=== PATIENT | female | born 1955 | race Caucasian/White ===

== ENCOUNTER 2017-05-19 23:12 | Emergency (ER) | payer OTHER ==
[~2017-05-19] VITALS: Ht 167.6 cm; Wt 104.5 kg
[~2017-05-19 23:12] MED LIST: ALBU8.5H5; ASPI-535 PO; ATOR80TA75 PO; BCL80INH INH; CARV3.1260 PO; CEPH-443 PO; CHLO1CAP56; CIPR500T4 PO; DOCU-144 PO; HYDR-906 PO; INSU100V18; ISOS5TAB2 PO; KENC1 TOP; KETO15CR TOP; LACTINEX PO; LAM1CR24 TOP; LANT3I SC; LAS20 PO; MELO-109 PO; NIT4 SL; ONDA4TAB35 PO; PANT40TA3 PO; SENN-36 PO; TICA90TA PO; TRAM50TA2 PO
[2017-05-19 23:16] VITALS: Ht 167.6 cm; Wt 104.5 kg
[2017-05-20] MEDS ORDERED: SOD CHLORIDE 0.9% 500 ML IV STA (01:06)
[2017-05-20 01:45] VITALS: TEMP 98.2
[2017-05-20] MEDS: ONDANSETRON 4 MG INJ IV STA ×2 (01:50→01:58)
[2017-05-20] MEDS: morphine 4 MG/ML VIAL IV STA ×2 (01:50→01:58)
[2017-05-20 01:59] LABS: URINE BLOOD (Dip) POC Negative (NEGATIVE)
[2017-05-20 02:42] LABS: ADD SCAN DIFF NO
[2017-05-20 02:46] LABS: BASOPHILS % 0.3 % (0.0-2.0); EOSINOPHILS # 0.4 10^3/ul (0.0-0.5); EOSINOPHILS % 4.5 % (0.0-7.0); HEMOGLOBIN 15.5 g/dl (12.0-16.0); LYMPHOCYTES # 2.4 10^3/ul (0.8-2.9); MEAN CORPUSCULAR HEMOGLOBIN 29.3 pg (29.0-33.0); MEAN CORPUSCULAR HGB CONC 34.4 g/dl (32.0-37.0); MEAN CORPUSCULAR VOLUME 85.1 fl (82.0-101.0); MEAN PLATELET VOLUME 10.3 fl (7.4-10.4); MONOCYTE # 0.6 10^3/ul (0.3-0.9); MONOCYTES % 6.8 % (0.0-11.0); NEUTROPHIL # 5.7 10^3/ul (1.6-7.5); PLATELET COUNT 400 10^3/UL (140-415); RED BLOOD COUNT 5.29 10^6/ul (4.20-5.40); RED CELL DISTRIBUTION WIDTH 13.2 % (11.5-14.5); WHITE BLOOD COUNT 9.1 10^3/ul (4.8-10.8)
--- NOTE | 2017-05-20 03:08 | RADRPT ---
PROCEDURE: CHEST - 1 VIEW CLINICAL INDICATION: 61-year-old female with chest/abdominal pain. TECHNIQUE: A single frontal view of the chest was performed. The images were reviewed on a PACS workstation. COMPARISON: None. FINDINGS: The cardiomediastinal silhouette has a normal appearance. There most aspect of the left lower latera l chest wall is not completely visualized. There is no evidence for an infiltrate. There is no evid ence for congestive heart failure. There is no evidence for pneumothorax. The osseous structures are intact. IMPRESSION: No evidence for active cardiopulmonary disease. .René Cornell MD, MD Date Time Electronically viewed and signed by .René Cornell MD, on 05/20/2017 03:08 .Koko
[2017-05-20 03:19] LABS: ALANINE AMINOTRANSFERASE 48 IU/L (13-69); ALBUMIN/GLOBULIN RATIO 1.56; ALKALINE PHOSPHATASE 132 IU/L (42-121); ANION GAP 13 (8-16); ASPARTATE AMINO TRANSFERASE 30 IU/L (15-46); BILIRUBIN,INDIRECT 0.3 mg/dl (0-1.1); BILIRUBIN,TOTAL 0.3 mg/dl (0.2-1.3); BLOOD UREA NITROGEN 18 mg/dl (7-20); CALCIUM 9.9 mg/dl (8.4-10.2); CARBON DIOXIDE 28 mmol/L (21-31); CHLORIDE 102 mmol/L (97-110); CREATININE 0.74 mg/dl (0.44-1.00); GLUCOSE 203 mg/dl (70-220); POTASSIUM 3.9 mmol/L (3.5-5.1); SODIUM 139 mmol/L (135-144); TOTAL PROTEIN 8.2 g/dl (6.1-8.1)
[2017-05-20 03:20] LABS: ADD UMIC YES; UR ASCORBIC ACID NEGATIVE (NEGATIVE); UR BACTERIA MODERATE /HPF (NONE SEEN); UR BILIRUBIN (Dip) NEGATIVE (NEGATIVE); UR BLOOD (Dip) NEGATIVE (NEGATIVE); UR CLARITY CLOUDY (CLEAR); UR COLOR AMBER (YELLOW); UR GLUCOSE (Dip) NEGATIVE (NEGATIVE); UR KETONES (Dip) NEGATIVE (NEGATIVE); UR LEUKOCYTE ESTERASE (Dip) 2+ Leu/ul (NEGATIVE); UR MUCUS FEW /HPF (NONE SEEN); UR NITRITE (Dip) POSITIVE (NEGATIVE); UR RBC 2 /HPF (0-5); UR SPECIFIC GRAVITY (Dip) 1.033 (1.003-1.030); UR SQUAMOUS EPITHELIAL CELL MODERATE /HPF (FEW); UR TOTAL PROTEIN (Dip) NEGATIVE (NEGATIVE); UR UROBILINOGEN (Dip) NEGATIVE (NEGATIVE)
[2017-05-20] MEDS ORDERED: MELO-110 PO (03:23)
[2017-05-20] MEDS ORDERED: CIPR500T4 PO (03:23)
[2017-05-20] MEDS ORDERED: CARV3.1260 PO (03:23)
[2017-05-20] MEDS ORDERED: CARV6.2579 PO (03:23)
--- NOTE | 2017-05-20 03:28 | ERD ---
ER Documentation Chief Complaint Date/Time DATE: 05/20/17 TIME: 03:27 Chief Complaint right flank pain x 1 day, hypertension- pt did not take bp med today HPI This 61-year-old female right flank pain for 1 day. Patient has history of multiple episodes of pyelonephritis. Denies any fevers or chills. Mild nausea but no vomiting. No other current complaints. ROS All systems reviewed and are negative except as per history of present illness. Medications Home Meds Active Scripts Ciprofloxacin Hcl* (Ciprofloxacin Hcl*) 500 Mg Tablet, 500 MG PO BID for 7 Days , TAB Prov:SAMMY HU. 05/20/17 Meloxicam* (Mobic*) 15 Mg Tablet, 15 MG PO DAILY, #30 TAB Prov:SAMMY HU. 05/20/17 Carvedilol* (Carvedilol*) 6.25 Mg Tablet, 6.25 MG PO BID, #60 TAB Prov:SAMMY HU. 05/20/17 Carvedilol* (Carvedilol*) 3.125 Mg Tablet, 3.125 MG PO BID, #60 TAB Prov:SAMMY HU S. 05/20/17 Ticagrelor* (Brilinta*) 90 Mg Tablet, 90 MG PO Q12 for 30 Days, TAB Prov:AR HUANG 06/18/15 Cephalexin* (Keflex*) 500 Mg Capsule, 500 MG PO QID for 14 Days, CAP Prov:AR HUANG 06/18/15 Furosemide (Lasix) 20 Mg Tab, 20 MG PO DAILY, #30 TAB Prov:STIVEN GAMBOA MD 08/12/14 Ciprofloxacin Hcl* (Ciprofloxacin Hcl*) 500 Mg Tablet, 500 MG PO BID, #30 TAB Prov:STIVEN GAMBOA MD 08/12/14 Reported Medications Triamcinolone Acetonide (Triamcinolone Acetonide) 0.1% - 15 Gm Cream.gm., TOP DAILY Y for DRY SKIN, TUB 08/10/14 Ketoconazole* (Ketoconazole*) 60 Gm Cream.gm., 1 APPLIC TOP BID Y for JOCK ITCH , EA 08/10/14 Terbinafine Hcl* (Lamisil*) 1% - 30 Gm Cr, 1 APPLIC TOP DAILY Y for ATHLETE FOOT , TUB 08/10/14 Meloxicam* (Meloxicam*) 7.5 Mg Tablet, 15 MG PO DAILY, TAB 08/10/14 Nitroglycerin* (Nitrostat*) 0.4 Mg Tab.subl, 0.4 MG SL Q5MIN Y for CHEST PAIN, BOTTLE 08/10/14 Pantoprazole* (Protonix*) 40 Mg Tablet.dr, 40 MG PO DAILY, TAB 08/10/14 Lactobacillus Acidophilus* (Lactinex*) 1 Tab Chew, 1 TAB PO DAILY, TAB 08/10/14 Sennosides* (Senokot*) 8.6 Mg Tablet, 1-2 TAB PO DAILY, TAB 08/10/14 Docusate Sodium* (Colace*) 100 Mg Capsule, 100 MG PO BID Y for CONSTIPATION, CAP 08/10/14 Ondansetron Hcl* (Zofran* ODT) 4 mg -ODT Tab.disper, 4 MG PO Q6H Y for NAUSEA, TAB 08/10/14 Beclomethasone Dip (Qvar 80) 1 Puff Inha, 1 PUFF INH DAILY, INH RINSE MOUTH AFTER EACH USE 08/10/14 Insulin Glargine* (Lantus*) 100 Unit/Ml Soln, 62 UNIT SC HS, EA 08/10/14 Atorvastatin* (Atorvastatin*) 80 Mg Tablet, 80 MG PO DAILY, TAB 08/10/14 Carvedilol* (Carvedilol*) 3.125 Mg Tablet, 3.125 MG PO BID, TAB 08/10/14 Aspirin Ec (Aspir 81) 81 Mg Tablet.dr, 81 MG PO DAILY 06/06/14 Hydrocodone Bit-Acetaminophen ([place]) 1 Tab Tablet, 2 TAB PO Q4H Y for PAIN LEVEL 6-10, TAB 06/06/14 Ticagrelor* (Brilinta*) 90 Mg Tablet, 90 MG PO Q12, TAB 06/06/14 Isosorbide Dinitrate* (Isordil*) 5 Mg Tab, 5 MG PO DAILY, TAB 06/06/14 Tramadol HCl (Tramadol HCl) 50 Mg Tab, 100 MG PO Q6H Y for PAIN, TAB 06/06/14 Chlordiazepoxide/Clidinium* (Librax*) 1 Cap Cap 04/21/10 Albuterol Sulfate* (Albuterol Sulfate* HFA) 8.5 Gm Hfa.aer.ad 04/21/10 Insulin Lispro (Humalog) 100 U/Ml Vial 04/21/10 Allergies Allergies: Coded Allergies: Fenoprofen (Verified Allergy, Mild, RASH, 08/10/14) Losartan (Unverified Adverse Reaction, Intermediate, IRREGULAR HEARTBEAT; CHEST PRESSURE, 08/11/14) lisinopril (Verified Adverse Reaction, Intermediate, 08/11/14) AFFECTING HER ASTHMA metformin (Verified Adverse Reaction, Intermediate, 08/11/14) EXTREMELY DROWSY Candesartan (Verified Adverse Reaction, Mild, 08/10/14) amlodipine (Verified Adverse Reaction, Mild, 06/06/14) atenolol (Verified Adverse Reaction, Mild, CHEST PRESSURE, 08/11/14) Uncoded Allergies: ARTIFICIAL SWEETENER (Adverse Reaction, Mild, 04/21/10) PMhx/Soc History of Surgery: No Anesthesia Reaction: No Hx Neurological Disorder: No Hx Respiratory Disorders: No Hx Psychiatric Problems: No Hx Miscellaneous Medical Probl: Yes (pyelo) Hx Alcohol Use: No Hx Substance Use: No Hx Tobacco Use: No Smoking Status: Never smoker Physical Exam Vitals Vital Signs Date Time Temp Pulse Resp B/P Pulse Ox O2 Delivery O2 Flow Rate FiO2 05/20/17 01:45 98.2 89 20 175/89 98 Room Air 05/19/17 23:16 97.4 72 20 178/86 98 Physical Exam Const: [] Head: Atraumatic Eyes: Normal Conjunctiva ENT: Normal External Ears, Nose and Mouth. Neck: Full range of motion..~ No meningismus. Resp: Clear to auscultation bilaterally Cardio: Regular rate and rhythm, no murmurs Abd: Soft, non tender, non distended. Normal bowel sounds Skin: No petechiae or rashes Back: No midline or flank tenderness Ext: No cyanosis, or edema Neur: Awake and alert Psych: Normal Mood and Affect Result Diagram: 05/20/1714405/20/17144 Results 24 hrs Laboratory Tests Test 05/20/17 01:45 05/20/17 02:02 White Blood Count 9.110^3/ul Red Blood Count 5.2910^6/ul Hemoglobin 15.5g/dl Hematocrit 45.0% Mean Corpuscular Volume 85.1fl Mean Corpuscular Hemoglobin 29.3pg Mean Corpuscular Hemoglobin Concent 34.4g/dl Red Cell Distribution Width 13.2% Platelet Count 31058^3/UL Mean Platelet Volume 10.3fl Neutrophils % 62.0% Lymphocytes % 26.0% Monocytes % 6.8% Eosinophils % 4.5% Basophils % 0.3% Nucleated Red Blood Cells % 0.0/100WBC Neutrophils # 5.710^3/ul Lymphocytes # 2.410^3/ul Monocytes # 0.610^3/ul Eosinophils # 0.410^3/ul Basophils # 0.010^3/ul Nucleated Red Blood Cells # 0.010^3/ul Urine Color ALEXIS Urine Clarity CLOUDY Urine pH 5.0 Urine Specific [place] 1.033 Urine Ketones NEGATIVEmg/dL Urine Nitrite POSITIVEmg/dL Urine Bilirubin NEGATIVEmg/dL Urine Urobilinogen NEGATIVEmg/dL Urine Leukocyte Esterase 2+[place]/ul Urine Microscopic RBC 2/HPF Urine Microscopic WBC 16/HPF Urine Squamous Epithelial Cells MODERATE/HPF Urine Bacteria MODERATE/HPF Urine Mucus FEW/HPF Urine Hemoglobin NEGATIVEmg/dL Urine Glucose NEGATIVEmg/dL Urine Total Protein NEGATIVEmg/dl Sodium Level 139mmol/L Potassium Level 3.9mmol/L Chloride Level 102mmol/L Carbon Dioxide Level 28mmol/L Anion Gap 13 Blood Urea Nitrogen 18mg/dl Creatinine 0.74mg/dl Glucose Level 203mg/dl Calcium Level 9.9mg/dl Total Bilirubin 0.3mg/dl Direct Bilirubin 0.00mg/dl Indirect Bilirubin 0.3mg/dl Aspartate Amino Transf (AST/SGOT) 30IU/L Alanine Aminotransferase (ALT/SGPT) 48IU/L Alkaline Phosphatase 132IU/L Troponin I Pending Total Protein 8.2g/dl Albumin 5.0g/dl Globulin 3.20g/dl Albumin/Globulin Ratio 1.56 Lipase 55U/L Bedside Urine pH (LAB) 5.5 Bedside Urine Protein (LAB) Trace Bedside Urine Glucose (UA) Negative Bedside Urine Ketones (LAB) Trace Bedside Urine Blood Negative Bedside Urine Nitrite (LAB) Positive Bedside Urine Leukocyte Esterase (L Trace Current Medications Medications (Trade) Dose Ordered Sig/Kristel Route PRN Reason Start Time Stop Time Status Last Admin Dose Admin Sodium Chloride (NS) 500 ml @ 500 mls/hr Q1H STAT IV 05/20/17 01:06 05/20/17 02:05 DC 05/20/17 01:51 Morphine Sulfate (morphine) 4 mg ONCE STAT IV 05/20/17 01:06 05/20/17 01:07 DC Ondansetron HCl (Zofran Inj) 4 mg ONCE STAT IV 05/20/17 01:06 05/20/17 01:07 DC Procedures/MDM EKG: Rate/Rhythm: [Normal Sinus Rhythm] QRS, ST, T-waves: [No changes consistent w/ acute ischemia] Impression: [No evidence of ischemia or arrhythmia] Medical decision made: 51-year-old female with evidence of pyelonephritis. Discharge with Cipro. Given refill for blood pressure medication. Told return 8 hours for serial abdominal exams. Return sooner for worsening symptoms Departure Diagnosis: Primary Impression: Pyelonephritis Additional Impression: HTN (hypertension) Hypertension type: essential hypertension Qualified Code: I10 - Essential hypertension Condition: Stable Patient Instructions: Pyelonephritis, Female (Adult) SAMMY HU May 20, 2017 03:28
[2017-05-20 03:43] LABS: TROPONIN-I < 0.012 ng/ml (0.00-0.12)
[2017-05-20 03:55] VITALS: BP 123/55; PULSE 64; RESP 18
[2017-05-20] MEDS ORDERED: CEFTRIAXONE 1 GM/50 ML (PMX) 50 ML IVPB ONE (04:30)
== END 2017-05-20 04:24 | disposition home or self-care (01) ==
LOC: E/R 23:12
DX: N12 Tubulo-interstitial nephritis, not specified as acute or chronic (principal); I10 Essential (primary) hypertension; Z79.4 Long term (current) use of insulin; Z79.82 Long term (current) use of aspirin
CPT/HCPCS: 36415; 71010; 80053; 81001; 83690; 84484; 85025; 87086; 93005; 96374; J0696; J2270; J2405; J7040; Z7502; 81003

== ENCOUNTER 2017-07-04 19:23 | Inpatient (IN) | payer OTHER ==
[~2017-07-04] VITALS: Ht 167.6 cm; Wt 102.0 kg
[~2017-07-04 19:23] MED LIST changes: +CARV6.2579 PO; -KENC1 TOP; +MELO-110 PO; +TRIA15CR55 TOP
--- NOTE | 2017-07-04 20:42 | ERA ---
ER Documentation Chief Complaint Date/Time DATE: 07/04/17 TIME: 20:39 Chief Complaint chest pain radaiting to left arm HPI 61-year-old woman presents with pressure-like chest pain 1 hour left arm pain all day. She states shortly prior to arrival she used nitroglycerin and aspirin with some relief in her symptoms. Patient states this discomfort is similar to [place] she experienced a year ago, at that time LAD stent was placed although was complicated by stent thrombosis which was treated medically. She denies chronic or recurrent chest pain and states the last time she had this discomfort was about a year ago. She denies fevers or chills, no cough, no shortness of breath, no loss of consciousness or dizziness, no calf or leg swelling. ROS All systems reviewed and are negative except as per history of present illness. Medications Home Meds Active Scripts Meloxicam* (Mobic*) 15 Mg Tablet, 15 MG PO DAILY, #30 TAB Prov:SAMMY HU. 05/20/17 Carvedilol* (Carvedilol*) 3.125 Mg Tablet, 3.125 MG PO BID, #60 TAB Prov:SAMMY HU. 05/20/17 Ticagrelor* (Brilinta*) 90 Mg Tablet, 90 MG PO Q12 for 30 Days, TAB Prov:AR HUANG 06/18/15 Reported Medications Cetirizine Hcl* (Cetirizine Hcl*) 10 Mg Tablet, 10 MG PO DAILY, #30 TAB 07/04/17 Insulin Glargine* (Lantus*) 100 Unit/Ml Soln, 40 UNIT SC QHS, #1 VIAL BASAGLAR 100UNIT/ML KWIKPEN 07/04/17 Insulin Lispro (Humalog) 100 Unit/1 Ml Cartridge, 12 UNIT SQ BID WITH MEALS 07/04/17 Erythromycin (Erythromycin Opth) 3.5 Gm Oint..gm., 1 APPLIC BOTH EYES DAILY, #1 TUB 07/04/17 Isosorbide Dinitrate* (Isordil*) 5 Mg Tab, 5 MG PO BID, TAB 07/04/17 Hydrocodone/Acetaminophen ([place] 5-325 Tablet) 1 Each Tablet, 1 EACH PO NEEDED, TAB 07/04/17 Albuterol Sulfate* (Ventolin HFA*) 18 Gm Hfa.aer.ad, 1 PUFF INHALATION Q6H, #1 INHALER 07/04/17 Fluticasone Propionate* (Flovent* HFA 220) 12 Gm Inha, 1 PUFF INHALATION BID, # 1 INHALER 07/04/17 Hydrochlorothiazide* (Hydrochlorothiazide*) 25 Mg Tab, 25 MG PO NEEDED, #30 TAB 07/04/17 Nitroglycerin* (Nitrostat*) 0.4 Mg Tab.subl, 0.4 MG SL Q5MIN Y for CHEST PAIN, BOTTLE 08/10/14 Ondansetron Hcl* (Zofran* ODT) 4 mg -ODT Tab.disper, 4 MG PO Q6H Y for NAUSEA, TAB 08/10/14 Atorvastatin* (Atorvastatin*) 80 Mg Tablet, 80 MG PO DAILY, TAB 08/10/14 Aspirin Ec (Aspir 81) 81 Mg Tablet.dr, 81 MG PO DAILY 06/06/14 Discontinued Reported Medications Triamcinolone Acetonide (Triamcinolone Acetonide) 0.1% - 15 Gm Cream.gm., TOP DAILY Y for DRY SKIN, TUB 08/10/14 Ketoconazole* (Ketoconazole*) 60 Gm Cream.gm., 1 APPLIC TOP BID Y for JOCK ITCH , EA 08/10/14 Terbinafine Hcl* (Lamisil*) 1% - 30 Gm Cr, 1 APPLIC TOP DAILY Y for ATHLETE FOOT , TUB 08/10/14 Meloxicam* (Meloxicam*) 7.5 Mg Tablet, 15 MG PO DAILY, TAB 08/10/14 Pantoprazole* (Protonix*) 40 Mg Tablet.dr, 40 MG PO DAILY, TAB 08/10/14 Lactobacillus Acidophilus* (Lactinex*) 1 Tab Chew, 1 TAB PO DAILY, TAB 08/10/14 Sennosides* (Senokot*) 8.6 Mg Tablet, 1-2 TAB PO DAILY, TAB 08/10/14 Docusate Sodium* (Colace*) 100 Mg Capsule, 100 MG PO BID Y for CONSTIPATION, CAP 08/10/14 Beclomethasone Dip (Qvar 80) 1 Puff Inha, 1 PUFF INH DAILY, INH RINSE MOUTH AFTER EACH USE 08/10/14 Insulin Glargine* (Lantus*) 100 Unit/Ml Soln, 50 UNIT SC HS, EA 08/10/14 Carvedilol* (Carvedilol*) 3.125 Mg Tablet, 3.125 MG PO BID, TAB 08/10/14 Hydrocodone Bit-Acetaminophen ([place]) 1 Tab Tablet, 2 TAB PO Q4H Y for PAIN LEVEL 6-10, TAB 06/06/14 Ticagrelor* (Brilinta*) 90 Mg Tablet, 90 MG PO Q12, TAB 06/06/14 Isosorbide Dinitrate* (Isordil*) 5 Mg Tab, 5 MG PO DAILY, TAB 06/06/14 Tramadol HCl (Tramadol HCl) 50 Mg Tab, 100 MG PO Q6H Y for PAIN, TAB 06/06/14 Chlordiazepoxide/Clidinium* (Librax*) 1 Cap Cap 04/21/10 Albuterol Sulfate* (Albuterol Sulfate* HFA) 8.5 Gm Hfa.aer.ad 04/21/10 Insulin Lispro (Humalog) 100 U/Ml Vial 04/21/10 Discontinued Scripts Ciprofloxacin Hcl* (Ciprofloxacin Hcl*) 500 Mg Tablet, 500 MG PO BID for 7 Days , TAB Prov:SAMMY HU 05/20/17 Carvedilol* (Carvedilol*) 6.25 Mg Tablet, 6.25 MG PO BID, #60 TAB Prov:SAMMY HU 05/20/17 Cephalexin* (Keflex*) 500 Mg Capsule, 500 MG PO QID for 14 Days, CAP Prov:AR HUANG 06/18/15 Furosemide (Lasix) 20 Mg Tab, 20 MG PO DAILY, #30 TAB Prov:STIVEN GAMBOA MD 08/12/14 Ciprofloxacin Hcl* (Ciprofloxacin Hcl*) 500 Mg Tablet, 500 MG PO BID, #30 TAB Prov:STIVEN GAMBOA MD 08/12/14 Allergies Allergies: Coded Allergies: fenoprofen (Verified Allergy, Mild, RASH, 07/04/17) lisinopril (Verified Adverse Reaction, Intermediate, 07/04/17) AFFECTING HER ASTHMA losartan (Unverified Adverse Reaction, Intermediate, IRREGULAR HEARTBEAT; CHEST PRESSURE, 07/04/17) metformin (Verified Adverse Reaction, Intermediate, 07/04/17) EXTREMELY DROWSY amlodipine (Verified Adverse Reaction, Mild, 07/04/17) atenolol (Verified Adverse Reaction, Mild, CHEST PRESSURE, 07/04/17) candesartan (Verified Adverse Reaction, Mild, 07/04/17) Uncoded Allergies: ARTIFICIAL SWEETENER (Adverse Reaction, Mild, 04/21/10) PMhx/Soc Wheelchair-bound, severe osteoarthritis, systemic lupus erythematosus, CAD with [place] last year and LAD stent placement with subsequent stent thrombosis and recanalization, hypertension, obesity, diabetes mellitus History of Surgery: No Anesthesia Reaction: No Hx Neurological Disorder: No Hx Respiratory Disorders: No Hx Psychiatric Problems: No Hx Miscellaneous Medical Probl: Yes (pyelo) Hx Alcohol Use: No Hx Substance Use: No Hx Tobacco Use: No Smoking Status: Never smoker FmHx Family History: diabetes Physical Exam Vitals Vital Signs Date Time Temp Pulse Resp B/P Pulse Ox O2 Delivery O2 Flow Rate FiO2 07/04/17 19:26 97.5 77 20 135/93 98 Physical Exam GENERAL: Well-developed, well-nourished, well-hydrated, in no apparent distress , looks nontoxic in appearance HEENT: Moist mucous membranes, pink conjunctiva, no cervical spine tenderness or step-off deformities, no goiter, no jaundice or icterus, extraocular movements intact without pain. No submandibular induration, and no pharyngeal erythema NEURO: Alert and oriented 3, cranial nerves II through XII intact bilaterally, pupils equal round reactive to light, no focal deficits or facial asymmetry, sensation intact distally Strength 5/5 in upper and lower extremities bilaterally CARDIAC: Regular rate and rhythm, no murmurs rubs or gallops LUNGS: Clear bilaterally no wheezing crackles or stridor ABDOMEN: Soft nontender, no guarding, no rigidity, no rebound, no psoas sign no obturator sign. Normoactive bowel sounds SKIN: Warm and dry to touch, no abrasions, contusions, or hematomas, no lacerations, no ecchymosis, no target lesions, and without ulcers EXTREMITIES: No clubbing cyanosis or edema, calves are bilaterally symmetrical, no Homans sign, no popliteal cord sign. Distal pulses equal and bilateral PSYCH: Normal affect without agitation or irritability Result Diagram: 07/05/1714 07/05/1714 Results 24 hrs Current Medications Medications (Trade) Dose Ordered Sig/Kristel Route PRN Reason Start Time Stop Time Status Last Admin Dose Admin Aspirin (Aspirin) 162 mg ONCE ONCE PO 07/04/17 21:00 07/04/17 21:01 DC 07/04/17 22:09 Nitroglycerin (Nitroglycerin (Sl Tab) 0.4 Mg) 1 tab ONCE ONCE SL 07/04/17 21:00 07/04/17 21:01 DC 07/04/17 22:09 Procedures/MDM IV line was established patient was placed on chicken and fish cleaner rhythm strip revealed a sinus rhythm at about 80 bpm with upright P and T waves. Patient was afebrile. EKG performed, read by me: 81 bpm, normal sinus rhythm, normal axis, no acute ST segment changes, narrow QRS complex, with good R-wave progression in precordial leads. I administered aspirin 162 mg p.o. for cardioprotective measures and nitroglycerin 0.4 mg sublingual 1. CBC and electrolytes are normal, liver function tests are normal, troponin was negative. I spoke to special procedure tech covering Dr. Chaves regarding her presentation and symptomatology agreed to follow-up. Cardiac Critical Care: Time: 36 minutes, this was time separate from other billable procedures Treatments/Evaluations: Close monitoring for dangerous arrhythmia and cardiovascular collapse, while treating with advance cardiac medications and techniques. Departure Diagnosis: Primary Impression: Chest pain Qualified Code: R07.9 - Chest pain, unspecified type Condition: TIMOTHY Avalos MD Jul 04, 2017 20:42
[2017-07-04] MEDS ORDERED: ASPIRIN 81 MG TAB PO ONE (21:00)
[2017-07-04] MEDS ORDERED: NITROGLYCERIN (SL) 0.4 MG TAB SL ONE (21:00)
[2017-07-04] MEDS ORDERED: HYD25 PO (21:14)
[2017-07-04] MEDS ORDERED: FLOV220 INHALATION (21:15)
[2017-07-04] MEDS ORDERED: ALBU18HF INHALATION (21:15)
[2017-07-04] MEDS ORDERED: HYDR-906 PO (21:16)
[2017-07-04] MEDS ORDERED: ISOS5TAB2 PO (21:17)
[2017-07-04] MEDS ORDERED: ERYT1OIN6 BOTH EYES (21:19)
[2017-07-04] MEDS ORDERED: INSU100C SQ (21:20)
[2017-07-04] MEDS ORDERED: LANT3I SC (21:22)
[2017-07-04] MEDS ORDERED: CETI-240 PO (21:28)
--- NOTE | 2017-07-04 22:12 | RADRPT ---
PROCEDURE: XR Chest. CLINICAL INDICATION: Abdominal pain TECHNIQUE: Upright AP Portable chest. COMPARISON: 05/20/2017 FINDINGS: There is mild cardiomegaly. The lungs are clear. The osseous structures are unremarkable. There is no free air under the diaphragm. IMPRESSION: No acute findings. RPTAT: HIKT .Nicolas Avila MD, MD Date Time Electronically viewed and signed by .Nicolas Avila MD, MD on 07/04/2017 22:11 .T/
[2017-07-04 22:55] LABS: BASOPHIL # 0.1 10^3/ul (0.0-0.1); BASOPHILS % 0.6 % (0.0-2.0); EOSINOPHILS # 0.4 10^3/ul (0.0-0.5); EOSINOPHILS % 3.5 % (0.0-7.0); HEMATOCRIT 43.2 % (37.0-47.0); HEMOGLOBIN 14.9 g/dl (12.0-16.0); LYMPHOCYTES # 2.3 10^3/ul (0.8-2.9); LYMPHOCYTES % 22.7 % (15.0-51.0); MEAN CORPUSCULAR HEMOGLOBIN 29.1 pg (29.0-33.0); MEAN CORPUSCULAR HGB CONC 34.5 g/dl (32.0-37.0); MEAN CORPUSCULAR VOLUME 84.4 fl (82.0-101.0); MEAN PLATELET VOLUME 9.5 fl (7.4-10.4); MONOCYTE # 0.7 10^3/ul (0.3-0.9); MONOCYTES % 6.6 % (0.0-11.0); NEUTROPHIL # 6.8 10^3/ul (1.6-7.5); NEUTROPHILS % 66.2 % (39.0-77.0); PLATELET COUNT 411 10^3/UL (140-415); RED BLOOD COUNT 5.12 10^6/ul (4.20-5.40); WHITE BLOOD COUNT 10.2 10^3/ul (4.8-10.8)
[2017-07-04 23:29] LABS: ALANINE AMINOTRANSFERASE 52 IU/L (13-69); ALBUMIN 4.3 g/dl (3.3-4.9); ALKALINE PHOSPHATASE 121 IU/L (42-121); ANION GAP 15 (8-16); ASPARTATE AMINO TRANSFERASE 29 IU/L (15-46); BILIRUBIN,INDIRECT 0.3 mg/dl (0-1.1); BILIRUBIN,TOTAL 0.3 mg/dl (0.2-1.3); BLOOD UREA NITROGEN 13 mg/dl (7-20); CALCIUM 9.6 mg/dl (8.4-10.2); CARBON DIOXIDE 24 mmol/L (21-31); CHLORIDE 104 mmol/L (97-110); CREATININE 0.66 mg/dl (0.44-1.00); GLUCOSE 133 mg/dl (70-220); POTASSIUM 3.8 mmol/L (3.5-5.1); SODIUM 139 mmol/L (135-144); TOTAL PROTEIN 7.6 g/dl (6.1-8.1)
[2017-07-04 23:37] LABS: B-TYPE NATRIURETIC PEPTIDE 150 PG/ML (0-125)
[2017-07-04 23:45] LABS: TROPONIN-I < 0.012 ng/ml (0.00-0.12)
[2017-07-05] VITALS (12 sets, daily range): BP systolic 121–144; BP diastolic 60–77; PULSE 59–71; RESP 16–20; Ht 167.6 cm; Wt 102.0 kg
[2017-07-05] MEDS ORDERED: NACL 0.9% 3 ML SYG IV SCH (01:00)
[2017-07-05] MEDS ORDERED: ACETAMINOPHEN 325 MG TAB PO PRN (01:00)
[2017-07-05] MEDS ORDERED: BISACODYL (EC) 5 MG TAB PO PRN (01:00)
[2017-07-05] MEDS ORDERED: GLUCOSE GEL 15 GRAM TUBE PO PRN ×2 (01:30)
[2017-07-05] MEDS ORDERED: GLUCOSE GEL 15 GRAM TUBE BUCCAL PRN (01:30)
[2017-07-05] MEDS ORDERED: GLUCAGON 1 MG INJ IM PRN (01:30)
[2017-07-05] MEDS ORDERED: DEXTROSE 50% 50 ML SYRINGE IV PRN ×2 (01:30)
[2017-07-05] MEDS: NITROGLYCERIN 2% 1 GM OINT PKT TD SCH ×3 (01:37→21:00)
[2017-07-05] MEDS: ACCU-CHEK XX SCH (02:00)
[2017-07-05] MEDS ORDERED: ACCU-CHEK XX SCH (02:00)
[2017-07-05] MEDS: ALBUTEROL 18 GM INHALER INH SCH ×5 (02:00→20:00)
[2017-07-05 02:58] LABS: CREATINE KINASE 132 IU/L (23-200)
[2017-07-05 03:12] LABS: CK-MB 3.26 ng/ml (0.0-2.4)
--- NOTE | 2017-07-05 03:19 | HP ---
Date/Time of Note Date/Time of Note DATE: 07/05/17 TIME: 02:56 Assessment/Plan VTE Prophylaxis VTE Prophylaxis Intervention: SCD's Lines/Catheters Urinary Cath still in place: No Assessment/Plan Chief Complaint/Hosp Course This is a 61 year female being admitted to the telemetry floor for: #1 chest pain: Rule out ACS. Patient has multiple cardiac risk factors as well as previous MO and stenting. Based on her current symptoms we will trend troponins 3. First set was negative. Will check echocardiogram. Provide Nitropaste. Morphine as needed. Aspirin. Consult cardiology. #2 coronary artery disease: Continue Brilinta, beta chele, aspirin, statin #3 diabetes mellitus: We will check a hemoglobin A1c. Resume home insulin doses. Will put patient on insulin sliding scale. #4 osteoarthritis of bilateral knees: Fall precautions, continue use of walker, pain medications as indicated for bilateral knees. Patient needs follow-up with orthopedics as an outpatient. #5 hyperlipidemia: Continue statin, check lipids #6 hypertension: Continue home medications monitor blood pressure #7 lupus: Continue monitor #8 DVT and GI prophylaxis: SCDs, acid chele Further treatment strategy will be implemented as per the clinical course Problems: HPI/ROS Admit Date/Time Admit Date/Time Jul 04, 2017 at 21:35 Hx of Present Illness Chief complaint: Left arm pain radiating to the chest This is a 61-year-old woman presents with pressure-like chest pain 1 hour left arm pain all day. Patient states that it started with a left arm pain that then eventually relieved radiated up to her chest. It was 8 out of 10 and a pressure-like sensation. She had a nitroglycerin 1 not helped her. Denies any headaches or shortness of breath. Patient states this discomfort is similar to MO she experienced a year ago, at that time LAD stent was placed although was complicated by stent thrombosis which was treated medically. She denies chronic or recurrent chest pain and states the last time she had this discomfort was about a year ago. She denies fevers or chills, no cough, no shortness of breath, no loss of consciousness or dizziness, no calf or leg swelling. Allergies: Artificial sweetener, amlodipine, atenolol, candesartan, phenol Profen, lisinopril, losartan, metformin Medications: See CHRISTIANO RITCHIE Const: As per HPI Eyes : No pain discharge or redness or change in visual acuity ENT: No pain, sore throat, congestion, congestion, dysphagia or discharge Respiratory: No shortness of breath, cough, sputum, wheezing, or pleuritic pain Cardiovascular: As per HPI GI : no change in appetite, abdominal pain, nausea, vomiting, diarrhea, constipation, or change in the color his stool Genitourinary: No dysuria, hematuria, flank pain , discharge or CVA tenderness Musculoskeletal: Osteoarthritis of both knees Skin: No rash, bruising or hives Neuro: No headache, dizziness, syncope, seizure, focal weakness Endocrine: No polyuria, polydipsia, temperature intolerance Psych: No hallucination, depression, anxiety or suicidal ideation PMH/Family/Social Past Medical History Myocardial infarction, pyelonephritis, osteoarthritis, diabetes mellitus, hyperlipidemia, hypertension, lupus Past Surgical History Cardiac stent 1 Family History Significant Family History: diabetes, hypertension Social History Alcohol Use: none Smoking Status: Never smoker Drug Use: none Exam/Review of Systems Vital Signs Vitals Vital Signs Date Time Temp Pulse Resp B/P Pulse Ox O2 Delivery O2 Flow Rate FiO2 07/05/17 01:02 97.8 70 16 133/77 95 07/04/17 23:44 Room Air Exam Exam General: This is a 61-year-old female lying in bed in no acute distress. HEENT: Atraumatic, normocephalic. The pupils are equal, round and reactive. Extraocular motor are intact Neck: Supple with full range of motion. No rigidity or meningismus Chest: Mild tenderness to palpation over the left chest Lungs: Clear to auscultation bilaterally no crackles rales or wheezing Heart: Normal S1-S2, Regular rhythm and rate. No overt murmurs appreciate Abdomen: Soft , nontender, nondistended , bowel sounds are present. No guarding no rebound tenderness , No masses or organomegaly. No costovertebral temporal angle mass Extremities: Normal range of motion of the bilateral lower extremity's, patient however has difficulty ambulating secondary to osteoarthritis she ambulates with a walker. Neurologic: Normal mental status, speech normal, cranial nerves II through XII are intact, motor and sensory are intact, no focal weakness Additional Comments PROCEDURE: XR Chest. CLINICAL INDICATION: Abdominal pain TECHNIQUE: Upright AP Portable chest. COMPARISON: 05/20/2017 FINDINGS: There is mild cardiomegaly. The lungs are clear. The osseous structures are unremarkable. There is no free air under the diaphragm. IMPRESSION: No acute findings. RPTAT: HIKT .Nicolas Avila MD, MD Date Time Electronically viewed and signed by .Nicolas Avila MD, MD on 07/04/2017 22:11 .T/ CC: TIMOTHY HERRERA MD EK bpm, normal sinus rhythm, normal axis, no acute ST segment changes, narrow QRS complex, with good R-wave progression in precordial leads. As per ED physician documentation Labs Result Diagram: 07/04/17215407/04/172154 Medications Medications Current Medications Ondansetron HCl (Zofran Inj) 4 mg Q6H PRN IV NAUSEA AND/OR VOMITING; Start 11/09 at 01:00 Acetaminophen (Tylenol Tab) 650 mg Q6H PRN PO PAIN LEVEL 1-3 OR FEVER; Start at 01:00 Morphine Sulfate (morphine) 2 mg Q4H PRN IV PAIN LEVEL 7-10; Start 07/05/17 at 01:00 Docusate Sodium (Colace) 100 mg Q12H PRN PO CONSTIPATION; Start 07/05/17 at 01: 00 Bisacodyl (Dulcolax) 5 mg DAILY PRN PO CONSTIPATION; Start 07/05/17 at 01:00 Pantoprazole (Protonix Tab) 40 mg DAILY@06 PO ; Start 07/05/17 at 06:00 Nitroglycerin (Nitroglycerin 2% Oint) 1 inch Q12 TD Last administered on t 01:37; Admin Dose 1 INCH; Start 07/05/17 at 01:29 Aspirin (Halfprin) 81 mg DAILY PO ; Start 07/05/17 at 09:00 Atorvastatin Calcium (Lipitor) 80 mg DAILY PO ; Start 07/05/17 at 09:00 Carvedilol (Coreg) 3.125 mg BID PO ; Start 07/05/17 at 09:00 Hydrochlorothiazide (Hydrochlorothiazide) 25 mg DAILY PO ; Start 07/05/17 at 09: 00 Insulin Glargine (Lantus) 40 unit QHS SC ; Start 07/05/17 at 21:00 Isosorbide Dinitrate (Isordil) 5 mg BID PO ; Start 07/05/17 at 09:00 Ticagrelor (Brilinta) 90 mg Q12 PO ; Start 07/05/17 at 09:00 Loratadine (Claritin) 10 mg DAILY PO ; Start 07/05/17 at 09:00 Miscellaneous Information 1 puff BID INHALATION ; Start 07/05/17 at 09:00; Status UNV Diagnostic Test (Pha) (Accu-Chek) 1 ea 02 XX ; Start 07/05/17 at 02:00 Miscellaneous Information 1 ea NOTE XX ; Start 07/05/17 at 01:30 Glucose (Glutose) 15 gm Q15M PRN PO DECREASED GLUCOSE; Start 07/05/17 at 01:30 Glucose (Glutose) 22.5 gm Q15M PRN PO DECREASED GLUCOSE; Start 07/05/17 at 01: 30 Dextrose (D50w Syringe) 25 ml Q15M PRN IV DECREASED GLUCOSE; Start 07/05/17 at 01:30 Dextrose (D50w Syringe) 50 ml Q15M PRN IV DECREASED GLUCOSE; Start 07/05/17 at 01:30 Glucagon (Glucagen) 1 mg Q15M PRN IM DECREASED GLUCOSE; Start 07/05/17 at 01:30 Glucose (Glutose) 15 gm Q15M PRN BUCCAL DECREASED GLUCOSE; Start 07/05/17 at 01 :30 GAYE CALERO Jul 05, 2017 03:17
[2017-07-05] MEDS: morphine 2 MG INJ IV PRN ×4 (03:43→18:03)
[2017-07-05] MEDS: ONDANSETRON 4 MG INJ IV PRN ×3 (03:43→18:03)
[2017-07-05 04:12] LABS: TROPONIN-I < 0.012 ng/ml (0.00-0.12)
[2017-07-05] MEDS: PANTOPRAZOLE (EC) 40 MG TAB PO SCH (06:00)
[2017-07-05 07:13] LABS: BASOPHIL # 0.1 10^3/ul (0.0-0.1); BASOPHILS % 0.6 % (0.0-2.0); EOSINOPHILS # 0.5 10^3/ul (0.0-0.5); EOSINOPHILS % 4.9 % (0.0-7.0); HEMATOCRIT 42.3 % (37.0-47.0); HEMOGLOBIN 14.3 g/dl (12.0-16.0); LYMPHOCYTES # 2.6 10^3/ul (0.8-2.9); LYMPHOCYTES % 26.5 % (15.0-51.0); MEAN CORPUSCULAR HEMOGLOBIN 28.8 pg (29.0-33.0); MEAN CORPUSCULAR HGB CONC 33.8 g/dl (32.0-37.0); MEAN CORPUSCULAR VOLUME 85.3 fl (82.0-101.0); MEAN PLATELET VOLUME 9.8 fl (7.4-10.4); MONOCYTE # 0.7 10^3/ul (0.3-0.9); MONOCYTES % 7.1 % (0.0-11.0); NEUTROPHILS % 60.5 % (39.0-77.0); PLATELET COUNT 417 10^3/UL (140-415); RED BLOOD COUNT 4.96 10^6/ul (4.20-5.40); RED CELL DISTRIBUTION WIDTH 13.2 % (11.5-14.5); WHITE BLOOD COUNT 9.9 10^3/ul (4.8-10.8)
[2017-07-05 07:24] LABS: CHOL/HDL RATIO 2.3 RATIO; CREATINE KINASE 126 IU/L (23-200)
[2017-07-05 07:28] LABS: ALBUMIN/GLOBULIN RATIO 1.29; BILIRUBIN,INDIRECT 0.2 mg/dl (0-1.1); BILIRUBIN,TOTAL 0.2 mg/dl (0.2-1.3); CALCIUM 9.4 mg/dl (8.4-10.2); CREATININE 0.73 mg/dl (0.44-1.00); POTASSIUM 3.4 mmol/L (3.5-5.1); TOTAL PROTEIN 7.1 g/dl (6.1-8.1)
[2017-07-05 07:36] LABS: CK-MB 3.03 ng/ml (0.0-2.4)
[2017-07-05 07:44] LABS: TROPONIN-I < 0.012 ng/ml (0.00-0.12)
[2017-07-05] MEDS: INSULIN ASPART [NOVOLOG] 3 ML PEN SC SCH ×6 (08:39→21:00)
[2017-07-05] MEDS: ATORVASTATIN 80 MG TAB PO SCH (08:57)
[2017-07-05] MEDS: ASPIRIN (EC) 81 MG TAB PO SCH (08:59)
[2017-07-05] MEDS: TICAGRELOR 90 MG TABLET PO SCH ×2 (09:00→21:17)
[2017-07-05] MEDS: LORATADINE 10 MG TAB PO SCH (09:00)
[2017-07-05] MEDS: HYDROCHLOROTHIAZIDE 25 MG TAB PO SCH (09:00)
[2017-07-05] MEDS: ISOSORBIDE DINITRATE 5 MG TAB PO SCH ×2 (09:00→16:27)
[2017-07-05] MEDS ORDERED: POTASSIUM CHLORIDE (SR) 10 MEQ TAB PO ONE (10:00)
[2017-07-05] MEDS: MOMETASONE 0.24 GM INHALER INH SCH ×2 (10:28→21:00)
--- NOTE | 2017-07-05 17:10 | RADRPT ---
Echocardiogram Report Patient Name: BRYCE WELLINGTON Gender: Female Date: 1955 Study Date: 05-Jul-2017 Brigadier: Dilma [facility] Location: 519 Ref. Physician: GAYE CALERO Quality: Technically Difficult Study Procedures: Transthoracic echocardiogram with complete 2D, M-Mode, and doppler examination. Indications: Chest Pain. 2D/M Mode Doppler Measurement Value Normal Ranges Measurement Value Normal Ranges LVIDd 2D 3.9 3.5 - 5.6 cm AV Peak Herman 1.8 m/sec LVIDs 2D 2.6 2.1 - 4.1 cm AV Peak PG 13.0 mmHg FS 2D 32.0 % LVOT Peak Herman 1.2 m/sec LVPWd 2D 1.3 0.6 - 1.1 cm LVOT Peak PG 6.0 mmHg IVSd 2D 1.3 0.6 - 1.1 cm MV E Peak Herman 0.7 m/sec IVS/LVPW 2D 1.0 MV A Peak Herman 0.6 m/sec AoR Diam 2D 2.8 2.0 - 3.7 cm MV E/A 1.2 LA/Ao 2D 2 0 - 1 MV Decel Time 232 msec EDV 2D 58.4 cm3 MV E/A 1.2 ESV 2D 18.4 cm3 LA Dimen 2D 4.2 2.3 - 4.0 cm Findings Left Ventricle: Normal left ventricular systolic function. Normal left ventricular cavity size. Mild concentric left ventricular hypertrophy. Tissue Doppler/Mitral Doppler indices are within normal limits. Right Ventricle: Normal right ventricular size. Normal right ventricular systolic function. Left Atrium: There is mild enlargement of left atrium. Right Atrium: The right atrium is normal in size. Mitral Valve: Normal appearance and function of the mitral valve with trace physiologic regurgitation. Aortic Valve: Normal appearance of the aortic valve. No significant aortic stenosis or insufficiency. Tricuspid Valve: Normal appearance of the tricuspid valve. Unable to obtain RVSP due to minimal presence of tricuspid regurgitation. There is trace tricuspid regurgitation. Pulmonic Valve: Pulmonic valve not well visualized. There is trace pulmonic regurgitation. Pericardium: Small pericardial effusion. No echocardiographic evidence to suggest pericardial tamponade. There is an anterior echo free space consistent with epicardial fat pad. Aorta: Normal aortic root. IVC: Normal size and normal respiratory collapse consistent with normal right atrial pressure. Conclusions 1.Normal left ventricular systolic function. Normal left ventricular cavity size. Mild concentric left ventricular hypertrophy. Tissue Doppler/Mitral Doppler indices are within normal limits. 2.Normal right ventricular size. Normal right ventricular systolic function. 3.Normal appearance and function of the mitral valve with trace physiologic regurgitation. 4.Normal appearance of the aortic valve. No significant aortic stenosis or insufficiency. 5.Normal appearance of the tricuspid valve. Unable to obtain RVSP due to minimal presence of tricuspid regurgitation. There is trace tricuspid regurgitation. 6.Small pericardial effusion. No echocardiographic evidence to suggest pericardial tamponade. There is an anterior echo free space consistent with epicardial fat pad. Electronically Signed By: Caio Howard 05-Jul-2017 17:10:16 -0700 Patient Name: BRYCE WELLINGTON Study Date: 05-Jul-2017 [id number]
[2017-07-05] MEDS: INSULIN GLARGINE [LANtus] 3 ML PEN SC SCH (21:18)
[2017-07-06] VITALS (11 sets, daily range): BP systolic 100–145; BP diastolic 58–74; PULSE 60–70; RESP 17–20
[2017-07-06] MEDS: morphine 2 MG INJ IV PRN ×4 (01:13→20:01)
[2017-07-06] MEDS: ONDANSETRON 4 MG INJ IV PRN ×3 (01:13→20:01)
[2017-07-06] MEDS: ALBUTEROL 18 GM INHALER INH SCH ×4 (02:00→20:00)
[2017-07-06] MEDS: ACCU-CHEK XX SCH (02:00)
--- NOTE | 2017-07-06 04:27 | CONS ---
DATE OF ADMISSION: 07/04/2017 DATE OF CONSULTATION: 07/05/2017 REASON FOR CONSULTATION: Chest pain. HISTORY OF PRESENT ILLNESS: The patient is a 61-year-old female, who complains of chest pain since yesterday, on and off. In fact, the patient states that the pain started in the left upper extremity and radiated to the center of the chest. Denies any shortness of breath, dizziness, palpitations, or syncope. Denies nausea or vomiting. Denies fever, chills, or rigors. PAST MEDICAL HISTORY: A history of coronary artery disease status post stenting of the LAD 3 years ago, and the last stress test was about 2 years ago. PAST MEDICAL HISTORY: Significant for coronary artery disease, status post ID, status post stenting of LAD, hypertension, diabetes mellitus, dyslipidemia, severe osteoarthritis, lupus. ALLERGIES: AMLODIPINE. ATENOLOL. CANDESARTAN. FENOPROFEN. LISINOPRIL. LOSARTAN. METFORMIN. SOCIAL HISTORY: No smoking, alcohol, or recreational drugs. REVIEW OF SYSTEMS: Unremarkable, except as mentioned in HPI. VITAL SIGNS: Temperature 97.4, heart rate of 66, blood pressure 140/67 mmHg, breathing at 20, saturating 98 percent. GENERAL: The patient is awake, alert, oriented, in no apparent distress. NECK: No JVD or carotid bruit. HEART: Regular rate and rhythm. No murmurs, rubs, or gallops. CHEST: Clear to auscultation. Abdomen is normal sinus rhythm. There is no organomegaly. EXTREMITIES: No pedal edema. Pedal pulses felt bilaterally. LAB: 1. WBC 9.9, hemoglobin 14.3, hematocrit 42.3 with a platelet of 417. Sodium 141, potassium 3.4, chloride 104, CO2 26, BUN 16, creatinine 0.73. BNP 150. Troponin x3 is negative. 2. A 12 lead EKG shows normal sinus rhythm with a ventricular rate of 81 beats per minute with normal p.o., normal QRS, normal QT intervals. With low-voltage across precordial and limb leads. 3. Chest x-ray shows cardiomegaly with no congestion or infiltrate. ASSESSMENT AND PLAN: This is a 61-year-old female with: 1. Atypical chest pain. 2. Coronary artery disease status post stenting. 3. Status post myocardial infarction. 4. Hypertension. 5. Diabetes mellitus. 6. Dyslipidemia. 7. Lupus. 8. The patient has been ruled out for acute coronary syndrome. Serial negative troponins. EKG shows no dynamic ST or T-wave changes. RECOMMENDATIONS: 1. The patient is awaiting 2D echo to assess for systolic function to rule out for segmental wall motion abnormality. 2. Continue Coreg. 3. Continue Isordil. 4. Continue aspirin. 5. Continue Lipitor. 6. Continue insulin. 7. Continue GI and DVT prophylaxis. Dictated By: Caio Howard MD /ilene/pelon /Document#: [id number]
[2017-07-06] MEDS: PANTOPRAZOLE (EC) 40 MG TAB PO SCH (06:00)
[2017-07-06 06:40] LABS: BASOPHIL # 0.1 10^3/ul (0.0-0.1); BASOPHILS % 0.5 % (0.0-2.0); EOSINOPHILS # 0.7 10^3/ul (0.0-0.5); EOSINOPHILS % 5.8 % (0.0-7.0); HEMATOCRIT 41.5 % (37.0-47.0); HEMOGLOBIN 13.6 g/dl (12.0-16.0); LYMPHOCYTES # 2.4 10^3/ul (0.8-2.9); MEAN CORPUSCULAR HEMOGLOBIN 28.6 pg (29.0-33.0); MEAN CORPUSCULAR HGB CONC 32.8 g/dl (32.0-37.0); MEAN CORPUSCULAR VOLUME 87.2 fl (82.0-101.0); MEAN PLATELET VOLUME 9.9 fl (7.4-10.4); MONOCYTE # 0.9 10^3/ul (0.3-0.9); MONOCYTES % 7.6 % (0.0-11.0); NEUTROPHIL # 7.4 10^3/ul (1.6-7.5); NEUTROPHILS % 64.6 % (39.0-77.0); PLATELET COUNT 389 10^3/UL (140-415); RED BLOOD COUNT 4.76 10^6/ul (4.20-5.40); RED CELL DISTRIBUTION WIDTH 13.3 % (11.5-14.5); WHITE BLOOD COUNT 11.4 10^3/ul (4.8-10.8)
[2017-07-06 07:14] LABS: MAGNESIUM 1.9 mg/dl (1.7-2.5); PHOSPHORUS 4.1 mg/dl (2.5-4.9)
[2017-07-06 07:22] LABS: CALCIUM 8.8 mg/dl (8.4-10.2); CREATININE 0.75 mg/dl (0.44-1.00); POTASSIUM 3.8 mmol/L (3.5-5.1)
[2017-07-06 07:28] LABS: TROPONIN-I < 0.012 ng/ml (0.00-0.12)
[2017-07-06] MEDS: INSULIN ASPART [NOVOLOG] 3 ML PEN SC SCH ×6 (07:55→21:05)
[2017-07-06] MEDS: LORATADINE 10 MG TAB PO SCH (08:40)
[2017-07-06] MEDS: HYDROCHLOROTHIAZIDE 25 MG TAB PO SCH (09:30)
[2017-07-06] MEDS: ISOSORBIDE DINITRATE 5 MG TAB PO SCH ×2 (09:30→21:03)
[2017-07-06] MEDS: ASPIRIN (EC) 81 MG TAB PO SCH (09:55)
[2017-07-06] MEDS: ATORVASTATIN 80 MG TAB PO SCH (09:55)
[2017-07-06] MEDS: TICAGRELOR 90 MG TABLET PO SCH ×2 (10:11→21:04)
[2017-07-06] MEDS: MOMETASONE 0.24 GM INHALER INH SCH ×2 (10:13→21:00)
[2017-07-06] MEDS: NITROGLYCERIN 2% 1 GM OINT PKT TD SCH ×2 (10:14→21:07)
--- NOTE | 2017-07-06 13:49 | PN ---
Date/Time of Note Date/Time of Note DATE: 07/06/17 TIME: 13:46 Assessment/Plan VTE Prophylaxis VTE Prophylaxis Intervention: SCD's Lines/Catheters Urinary Cath still in place: No Assessment/Plan Assessment/Plan #1 chest pain: atypicl with H/o CAD- s/p Cardiology consult #2 coronary artery disease: Continue Brilinta, beta chele, aspirin, statin #3 diabetes mellitus: #4 osteoarthritis of bilateral knees: Fall precautions, continue use of walker, pain medications as indicated for bilateral knees. Patient needs follow-up with orthopedics as an outpatient. #5 hyperlipidemia: Continue statin, check lipids #6 hypertension: Continue home medications monitor blood pressure #7 lupus: Continue monitor #8 DVT and GI prophylaxis: SCDs, acid chele ECHO normal, BP stable, sertial troponins negative we will wait for cardiology follow up - if no plan for procedue then possible d/ c Subjective 24 Hr Interval Summary Free Text/Dictation no c hest pain, s/p cardiologyconsult, ECHO normal, BP Stable Exam/Review of Systems Vital Signs Vitals Vital Signs Date Time Temp Pulse Resp B/P Pulse Ox O2 Delivery O2 Flow Rate FiO2 07/06/17 12:23 68 07/06/17 12:03 98.0 18 100/58 96 07/04/17 23:44 Room Air Intake and Output 07/05/17 07/05/17 07/06/17 15:00 23:00 07:00 Intake Total 680 ml 700 ml Balance 680 ml 700 ml Exam Constitutional: alert Psych: no complaints Eyes: nl conjunctiva ENMT: nl external ears & nose Neck: non-tender, supple Respiratory: clear to auscultation, normal air movement Cardiovascular: nl pulses, regular rate and rhythm Gastrointestinal: non-tender, soft Musculoskeletal: nl extremities to inspection Extremities: normal pulses 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0 Neutrophils # 7.4 Lymphocytes # 2.4 Monocytes # 0.9 Eosinophils # 0.7 H Basophils # 0.1 Nucleated Red Blood Cells # 0.0 Sodium Level 140 Potassium Level 3.8 Chloride Level 103 Carbon Dioxide Level 27 Anion Gap 14 Blood Urea Nitrogen 19 Creatinine 0.75 Glucose Level 187 Calcium Level 8.8 Phosphorus Level 4.1 Magnesium Level 1.9 Troponin I < 0.012 Test 07/06/17 11:53 Bedside Glucose 193 Medications Medications Current Medications Ondansetron HCl (Zofran Inj) 4 mg Q6H PRN IV NAUSEA AND/OR VOMITING Last administered on 07/06/17 10:12; Admin Dose 4 MG; Start 07/05/17 at 01:00 Acetaminophen (Tylenol Tab) 650 mg Q6H PRN PO PAIN LEVEL 1-3 OR FEVER; Start at 01:00 Morphine Sulfate (morphine) 2 mg Q4H PRN IV PAIN LEVEL 7-10 Last administered on 07/06/17 10:12; Admin Dose 2 MG; Start 07/05/17 at 01:00 Docusate Sodium (Colace) 100 mg Q12H PRN PO CONSTIPATION; Start 07/05/17 at 01: 00 Bisacodyl (Dulcolax) 5 mg DAILY PRN PO CONSTIPATION; Start 07/05/17 at 01:00 Pantoprazole (Protonix Tab) 40 mg DAILY@06 PO Last administered on 07/06/17 06 :00; Admin Dose 40 MG; Start 07/05/17 at 06:00 Nitroglycerin (Nitroglycerin 2% Oint) 1 inch Q12 TD Last administered on 10:14; Admin Dose 1 INCH; Start 07/05/17 at 01:29 Aspirin (Halfprin) 81 mg DAILY PO Last administered on 07/06/17 09:55; Admin Dose 81 MG; Start 07/05/17 at 09:00 Atorvastatin Calcium (Lipitor) 80 mg DAILY PO Last administered on 07/06/17 09 :55; Admin Dose 80 MG; Start 07/05/17 at 09:00 Carvedilol (Coreg) 3.125 mg BID PO Last administered on 07/06/17 09:55; Admin Dose 3.125 MG; Start 07/05/17 at 09:00 Hydrochlorothiazide (Hydrochlorothiazide) 25 mg DAILY PO ; Start 07/05/17 at 09: 00 Insulin Glargine (Lantus) 40 unit QHS SC Last administered on 07/05/17 21:18; Admin Dose 40 UNIT; Start 07/05/17 at 21:00 Isosorbide Dinitrate (Isordil) 5 mg BID PO Last administered on 07/05/17 16:27 ; Admin Dose 5 MG; Start 07/05/17 at 09:00 Ticagrelor (Brilinta) 90 mg Q12 PO Last administered on 07/06/17 10:11; Admin Dose 90 MG; Start 07/05/17 at 09:00 Loratadine (Claritin) 10 mg DAILY PO ; Start 07/05/17 at 09:00 Mometasone Furoate (Asmanex) 1 puff BID INH Last administered on 07/06/17 10: 13; Admin Dose 1 PUFF; Start 07/05/17 at 09:00 Diagnostic Test (Pha) (Accu-Chek) 1 ea 02 XX ; Start 07/05/17 at 02:00 Miscellaneous Information 1 ea NOTE XX ; Start 07/05/17 at 01:30 Glucose (Glutose) 15 gm Q15M PRN PO DECREASED GLUCOSE; Start 07/05/17 at 01:30 Glucose (Glutose) 22.5 gm Q15M PRN PO DECREASED GLUCOSE; Start 07/05/17 at 01: 30 Dextrose (D50w Syringe) 25 ml Q15M PRN IV DECREASED GLUCOSE; Start 07/05/17 at 01:30 Dextrose (D50w Syringe) 50 ml Q15M PRN IV DECREASED GLUCOSE; Start 07/05/17 at 01:30 Glucagon (Glucagen) 1 mg Q15M PRN IM DECREASED GLUCOSE; Start 07/05/17 at 01:30 Glucose (Glutose) 15 gm Q15M PRN BUCCAL DECREASED GLUCOSE; Start 07/05/17 at 01 :30 MANNY SILVER MD Jul 06, 2017 13:48
--- NOTE | 2017-07-06 13:50 | PDOCDIS ---
Discharge Instructions CONDITION Patient Condition: Good HOME CARE INSTRUCTIONS: Special Diet: Cardiac diet ACTIVITY: Activity Restrictions: Slowly Increase Activity Rest between Activity Avoid heavy lifting Avoid Heavy Housework FOLLOW UP/APPOINTMENTS Follow-up Plan Follow up with her own PMD through HMO insurance in 1-2 week. Follow up with cardiology as outpatient( he will need referral from his PMD to see roof bolter helper as outpatient) MANNY SILVER MD Jul 06, 2017 13:50
[2017-07-06] MEDS: COLCHICINE 0.6 MG TAB PO SCH ×2 (18:58→21:00)
[2017-07-06] MEDS ORDERED: COLCHICINE 0.6 MG TAB PO SCH (21:00)
[2017-07-06] MEDS: INSULIN GLARGINE [LANtus] 3 ML PEN SC SCH (21:04)
[2017-07-07] VITALS (12 sets, daily range): BP systolic 134–205; BP diastolic 64–91; PULSE 53–70; RESP 18–20
[2017-07-07] MEDS: ACCU-CHEK XX SCH (02:00)
[2017-07-07] MEDS: ALBUTEROL 18 GM INHALER INH SCH ×4 (02:00→20:00)
[2017-07-07] MEDS: PANTOPRAZOLE (EC) 40 MG TAB PO SCH (06:00)
[2017-07-07] MEDS: ASPIRIN (EC) 81 MG TAB PO SCH (08:43)
[2017-07-07] MEDS: ISOSORBIDE DINITRATE 5 MG TAB PO SCH ×2 (08:53→21:17)
[2017-07-07] MEDS: HYDROCHLOROTHIAZIDE 25 MG TAB PO SCH (08:53)
[2017-07-07] MEDS: TICAGRELOR 90 MG TABLET PO SCH ×2 (08:55→21:25)
[2017-07-07] MEDS: INSULIN ASPART [NOVOLOG] 3 ML PEN SC SCH ×6 (08:56→21:26)
[2017-07-07] MEDS: COLCHICINE 0.6 MG TAB PO SCH (08:58)
[2017-07-07] MEDS: NITROGLYCERIN 2% 1 GM OINT PKT TD SCH ×2 (08:58→21:17)
[2017-07-07] MEDS: ATORVASTATIN 80 MG TAB PO SCH (08:59)
[2017-07-07] MEDS: LORATADINE 10 MG TAB PO SCH (08:59)
[2017-07-07] MEDS: MOMETASONE 0.24 GM INHALER INH SCH ×2 (09:00→21:00)
[2017-07-07] MEDS: ONDANSETRON 4 MG INJ IV PRN (11:31)
[2017-07-07] MEDS: morphine 2 MG INJ IV PRN (11:31)
[2017-07-07] MEDS ORDERED: KETOROLAC 15 MG INJ IV STA (16:59)
--- NOTE | 2017-07-07 17:05 | CONS ---
Date/Time of Note Date/Time of Note DATE: 07/07/17 TIME: 17:02 Assessment/Plan Assessment/Plan Additional Assessment/Plan 1. Atypical chest pain.- R/O [facility] - I offered stress test to pt- says she wants to see DR. Chaves first (his office pt) - will defer to outpt stress test 2. Coronary artery disease status post stenting- no CP now, con't med rx 3. Status post myocardial infarction- prior 4. Hypertension. 5. Diabetes mellitus. 6. Dyslipidemia. 7. Lupus - Rx with Toradol 30 mg po tid no w 8. The patient has been ruled out for acute coronary syndrome. Serial negative troponins. EKG shows no dynamic ST or T-wave changes. 9. Pericardial effusion - Rx with colchicine by Dr. Howard - had a reaction - will change to toradol now. Consultation Date/Type/Reason Admit Date/Time Jul 04, 2017 at 21:35 Initial Consult Date 24 HR Interval Summary Free Text/Dictation NO acute events - No CP now - plan for dispo and f/up with DR. Chaves. ROS: No fever, no chills, no nausea, no vomiting, no diarrhea/constipation No recent weight changes No chest pain, no PND, no orthopnea No dizziness, blurred vision No thirst, no heat or cold intolerance Exam/Review of Systems Vital Signs Vitals Vital Signs Date Time Temp Pulse Resp B/P Pulse Ox O2 Delivery O2 Flow Rate FiO2 07/07/17 16:06 97.6 63 18 143/67 98 07/04/17 23:44 Room Air Intake and Output 07/06/17 07/06/17 07/07/17 15:00 23:00 07:00 Intake Total 370 ml Balance 370 ml Exam General: WN/WD/NAD, AOx 3 HEENT: Unicetric/atraumatic/EOMI (follow commands) NECK: JVD elevated, no thyromegaly Lymph: no lymphadenopathy HEART: regular with no S3, II/ systolic murmur at apex, + rub LUNGS: Coarse sounds ABD: soft, NT, ND, +BS : Intact Neuro: non focal SKIN: chronic changes EXT: trace edema Results Result Diagram: 07/06/17 0553 07/06/17 0553 Results 24 hrs Laboratory Tests Test 07/06/17 17:33 07/06/17 21:01 07/07/17 08:39 07/07/17 13:14 Bedside Glucose 239 H 230 H 148 105 Medications Medications Current Medications Ondansetron HCl (Zofran Inj) 4 mg Q6H PRN IV NAUSEA AND/OR VOMITING Last administered on 07/07/17 11:31; Admin Dose 4 MG; Start 07/05/17 at 01:00 Acetaminophen (Tylenol Tab) 650 mg Q6H PRN PO PAIN LEVEL 1-3 OR FEVER; Start at 01:00 Morphine Sulfate (morphine) 2 mg Q4H PRN IV PAIN LEVEL 7-10 Last administered on 07/07/17 11:31; Admin Dose 2 MG; Start 07/05/17 at 01:00 Docusate Sodium (Colace) 100 mg Q12H PRN PO CONSTIPATION; Start 07/05/17 at 01: 00 Bisacodyl (Dulcolax) 5 mg DAILY PRN PO CONSTIPATION; Start 07/05/17 at 01:00 Pantoprazole (Protonix Tab) 40 mg DAILY@06 PO Last administered on 07/06/17 06 :00; Admin Dose 40 MG; Start 07/05/17 at 06:00 Nitroglycerin (Nitroglycerin 2% Oint) 1 inch Q12 TD Last administered on 08:58; Admin Dose 1 INCH; Start 07/05/17 at 01:29 Aspirin (Halfprin) 81 mg DAILY PO Last administered on 07/07/17 08:43; Admin Dose 81 MG; Start 07/05/17 at 09:00 Atorvastatin Calcium (Lipitor) 80 mg DAILY PO Last administered on 07/06/17 09 :55; Admin Dose 80 MG; Start 07/05/17 at 09:00 Carvedilol (Coreg) 3.125 mg BID PO Last administered on 07/07/17 08:59; Admin Dose 3.125 MG; Start 07/05/17 at 09:00 Hydrochlorothiazide (Hydrochlorothiazide) 25 mg DAILY PO ; Start 07/05/17 at 09: 00 Insulin Glargine (Lantus) 40 unit QHS SC Last administered on 07/06/17 21:04; Admin Dose 40 UNIT; Start 07/05/17 at 21:00 Isosorbide Dinitrate (Isordil) 5 mg BID PO Last administered on 07/07/17 08:53 ; Admin Dose 5 MG; Start 07/05/17 at 09:00 Ticagrelor (Brilinta) 90 mg Q12 PO Last administered on 07/07/17 08:55; Admin Dose 90 MG; Start 07/05/17 at 09:00 Loratadine (Claritin) 10 mg DAILY PO ; Start 07/05/17 at 09:00 Mometasone Furoate (Asmanex) 1 puff BID INH Last administered on 07/07/17 09: 00; Admin Dose 1 PUFF; Start 07/05/17 at 09:00 Diagnostic Test (Pha) (Accu-Chek) 1 ea 02 XX ; Start 07/05/17 at 02:00 Miscellaneous Information 1 ea NOTE XX ; Start 07/05/17 at 01:30 Glucose (Glutose) 15 gm Q15M PRN PO DECREASED GLUCOSE; Start 07/05/17 at 01:30 Glucose (Glutose) 22.5 gm Q15M PRN PO DECREASED GLUCOSE; Start 07/05/17 at 01: 30 Dextrose (D50w Syringe) 25 ml Q15M PRN IV DECREASED GLUCOSE; Start 07/05/17 at 01:30 Dextrose (D50w Syringe) 50 ml Q15M PRN IV DECREASED GLUCOSE; Start 07/05/17 at 01:30 Glucagon (Glucagen) 1 mg Q15M PRN IM DECREASED GLUCOSE; Start 07/05/17 at 01:30 Glucose (Glutose) 15 gm Q15M PRN BUCCAL DECREASED GLUCOSE; Start 07/05/17 at 01 :30 Colchicine (Colchicine) 0.6 mg BID PO Last administered on 07/06/17 18:58; Admin Dose 0.6 MG; Start 07/06/17 at 18:30 BRYAN MCKEE MD Jul 07, 2017 17:05
--- NOTE | 2017-07-07 17:42 | PN ---
Date/Time of Note Date/Time of Note DATE: 07/07/17 TIME: 17:40 Assessment/Plan VTE Prophylaxis VTE Prophylaxis Intervention: ambulation Lines/Catheters IV C[facility]ter Type [facility]from [facility] Saline Lock Urinary Cath still in place: No Assessment/Plan Chief Complaint/Hosp Course Assessment/Plan #1 chest pain: atypicl with H/o CAD- s/p Cardiology consult . #1a: pericarditis, had reaction to colchicine, will try ketorolac per cardiology and ok to DC tomorrow AM if tolerating. #2 coronary artery disease: Continue Brilinta, beta chele, aspirin, statin #3 diabetes mellitus: #4 osteoarthritis of bilateral knees: Fall precautions, continue use of walker, pain medications as indicated for bilateral knees. Patient needs follow-up with orthopedics as an outpatient. #5 hyperlipidemia: Continue statin, #6 hypertension: Continue home medications monitor blood pressure #7 lupus: Continue monitor #8 DVT and GI prophylaxis: SCDs, Problems: Subjective 24 Hr Interval Summary Free Text/Dictation concerned about colchicine reaction, explained at depth. Exam/Review of Systems Vital Signs Vitals Vital Signs Date Time Temp Pulse Resp B/P Pulse Ox O2 Delivery O2 Flow Rate FiO2 07/07/17 16:22 70 07/07/17 16:06 97.6 18 143/67 98 07/04/17 23:44 Room Air Intake and Output 07/06/17 07/06/17 07/07/17 15:00 23:00 07:00 Intake Total 370 ml Balance 370 ml Exam Physical exam General: Patient is laying in bed and answers questions appropriately, in walker wheelchair Mentation: Patient is alert and oriented 4, Head: Normocephalic atraumatic Eyes: EOMI, pupils reactive to light Neck: Supple, nontender, midline Respiratory: Clear to auscultation bilaterally Cardiovascular: regular rate, no obvious murmurs Gastrointestinal: non-tender to palpation, bowel sounds heard. Neurological: Moves all extremities spontaneously Skin: No new skin lesions Results Result Diagram: 07/06/17 0553 07/06/17 0553 Results 24 hrs Laboratory Tests Test 07/06/17 21:01 07/07/17 08:39 07/07/17 13:14 Bedside Glucose 230 H 148 105 Medications Medications Current Medications Ondansetron HCl (Zofran Inj) 4 mg Q6H PRN IV NAUSEA AND/OR VOMITING Last administered on 07/07/17 11:31; Admin Dose 4 MG; Start 07/05/17 at 01:00 Acetaminophen (Tylenol Tab) 650 mg Q6H PRN PO PAIN LEVEL 1-3 OR FEVER; Start at 01:00 Morphine Sulfate (morphine) 2 mg Q4H PRN IV PAIN LEVEL 7-10 Last administered on 07/07/17 11:31; Admin Dose 2 MG; Start 07/05/17 at 01:00 Docusate Sodium (Colace) 100 mg Q12H PRN PO CONSTIPATION; Start 07/05/17 at 01: 00 Bisacodyl (Dulcolax) 5 mg DAILY PRN PO CONSTIPATION; Start 07/05/17 at 01:00 Pantoprazole (Protonix Tab) 40 mg DAILY@06 PO Last administered on 07/06/17 06 :00; Admin Dose 40 MG; Start 07/05/17 at 06:00 Nitroglycerin (Nitroglycerin 2% Oint) 1 inch Q12 TD Last administered on 08:58; Admin Dose 1 INCH; Start 07/05/17 at 01:29 Aspirin (Halfprin) 81 mg DAILY PO Last administered on 07/07/17 08:43; Admin Dose 81 MG; Start 07/05/17 at 09:00 Atorvastatin Calcium (Lipitor) 80 mg DAILY PO Last administered on 07/06/17 09 :55; Admin Dose 80 MG; Start 07/05/17 at 09:00 Carvedilol (Coreg) 3.125 mg BID PO Last administered on 07/07/17 08:59; Admin Dose 3.125 MG; Start 07/05/17 at 09:00 Hydrochlorothiazide (Hydrochlorothiazide) 25 mg DAILY PO ; Start 07/05/17 at 09: 00 Insulin Glargine (Lantus) 40 unit QHS SC Last administered on 07/06/17 21:04; Admin Dose 40 UNIT; Start 07/05/17 at 21:00 Isosorbide Dinitrate (Isordil) 5 mg BID PO Last administered on 07/07/17 08:53 ; Admin Dose 5 MG; Start 07/05/17 at 09:00 Ticagrelor (Brilinta) 90 mg Q12 PO Last administered on 07/07/17 08:55; Admin Dose 90 MG; Start 07/05/17 at 09:00 Loratadine (Claritin) 10 mg DAILY PO ; Start 07/05/17 at 09:00 Mometasone Furoate (Asmanex) 1 puff BID INH Last administered on 07/07/17 09: 00; Admin Dose 1 PUFF; Start 07/05/17 at 09:00 Diagnostic Test (Pha) (Accu-Chek) 1 ea 02 XX ; Start 07/05/17 at 02:00 Miscellaneous Information 1 ea NOTE XX ; Start 07/05/17 at 01:30 Glucose (Glutose) 15 gm Q15M PRN PO DECREASED GLUCOSE; Start 07/05/17 at 01:30 Glucose (Glutose) 22.5 gm Q15M PRN PO DECREASED GLUCOSE; Start 07/05/17 at 01: 30 Dextrose (D50w Syringe) 25 ml Q15M PRN IV DECREASED GLUCOSE; Start 07/05/17 at 01:30 Dextrose (D50w Syringe) 50 ml Q15M PRN IV DECREASED GLUCOSE; Start 07/05/17 at 01:30 Glucagon (Glucagen) 1 mg Q15M PRN IM DECREASED GLUCOSE; Start 07/05/17 at 01:30 Glucose (Glutose) 15 gm Q15M PRN BUCCAL DECREASED GLUCOSE; Start 07/05/17 at 01 :30 Colchicine (Colchicine) 0.6 mg BID PO Last administered on 07/06/17 18:58; Admin Dose 0.6 MG; Start 07/06/17 at 18:30 TIMOTHY NEW Jul 07, 2017 17:42
[2017-07-07] MEDS: INSULIN GLARGINE [LANtus] 3 ML PEN SC SCH (21:27)
[2017-07-08] VITALS (11 sets, daily range): BP systolic 124–150; BP diastolic 64–72; PULSE 59–71; RESP 18–22
[2017-07-08] MEDS: DOCUSATE SODIUM 100 MG CAP PO PRN ×2 (01:57→11:27)
[2017-07-08] MEDS: ALBUTEROL 18 GM INHALER INH SCH ×3 (02:00→13:59)
[2017-07-08] MEDS: ACCU-CHEK XX SCH (02:05)
[2017-07-08] MEDS: PANTOPRAZOLE (EC) 40 MG TAB PO SCH (05:13)
[2017-07-08] MEDS: MOMETASONE 0.24 GM INHALER INH SCH (08:15)
[2017-07-08] MEDS: INSULIN ASPART [NOVOLOG] 3 ML PEN SC SCH ×7 (08:15→17:13)
[2017-07-08] MEDS: LORATADINE 10 MG TAB PO SCH (08:20)
[2017-07-08] MEDS: HYDROCHLOROTHIAZIDE 25 MG TAB PO SCH (08:21)
[2017-07-08] MEDS: TICAGRELOR 90 MG TABLET PO SCH ×2 (09:00→11:12)
[2017-07-08] MEDS: ISOSORBIDE DINITRATE 5 MG TAB PO SCH (09:00)
[2017-07-08] MEDS: ASPIRIN (EC) 81 MG TAB PO SCH ×2 (09:00→11:14)
[2017-07-08] MEDS: ATORVASTATIN 80 MG TAB PO SCH (09:00)
[2017-07-08] MEDS: NITROGLYCERIN 2% 1 GM OINT PKT TD SCH (09:00)
[2017-07-08] MEDS ORDERED: KETOROLAC 15 MG INJ IV STA (09:30)
--- NOTE | 2017-07-08 09:30 | CONS ---
Date/Time of Note Date/Time of Note DATE: 07/08/17 TIME: 09:27 Assessment/Plan Assessment/Plan Additional Assessment/Plan 1. Atypical chest pain.- R/O [place] - I offered stress test to pt- says she wants to see DR. Chaves first (his office pt) - will defer to outpt stress test - responded well to toradol IV 2. Coronary artery disease status post stenting- no CP now, con't med rx - no CP now 3. Status post myocardial infarction- to follow as outpatient. 4. Hypertension - borderline. 5. Diabetes mellitus- on meds now. 6. Dyslipidemia. 7. Lupus - Rx with Toradol 30 mg po tid no w 8. The patient has been ruled out for acute coronary syndrome. Serial negative troponins. EKG shows no dynamic ST or T-wave changes. 9. Pericardial effusion - Rx with colchicine by Dr. Howard - had a reaction - will change to toradol now. Consultation Date/Type/Reason Admit Date/Time Jul 04, 2017 at 21:35 24 HR Interval Summary Free Text/Dictation No acute change - chest pain improved with toradol. ROS: No fever, no chills, no nausea, no vomiting, no diarrhea/constipation No recent weight changes No chest pain, no PND, no orthopnea No dizziness, blurred vision No thirst, no heat or cold intolerance Exam/Review of Systems Vital Signs Vitals Vital Signs Date Time Temp Pulse Resp B/P Pulse Ox O2 Delivery O2 Flow Rate FiO2 07/08/17 08:12 59 07/08/17 07:39 97.9 18 150/68 97 07/04/17 23:44 Room Air Intake and Output 07/07/17 07/07/17 07/08/17 15:00 23:00 07:00 Intake Total 700 ml 480 ml Balance 700 ml 480 ml Exam General: WN/WD/NAD, AOx 3 HEENT: Unicetric/atraumatic/EOMI (follows commands) NECK: JVD elevated, no thyromegaly Lymph: no lymphadenopathy HEART: regular with no S3, II/ systolic murmur at apex, rub LUNGS: Coarse sounds ABD: soft, NT, ND, +BS : Intact Neuro: non focal SKIN: chronic changes EXT: trace edema Results Result Diagram: 07/06/17 0553 07/06/17 0553 Results 24 hrs Laboratory Tests Test 07/07/17 13:14 07/07/17 17:54 07/07/17 21:14 07/08/17 01:59 Bedside Glucose 105 166 235 H 158 Test 07/08/17 08:19 Bedside Glucose 204 Medications Medications Current Medications Ondansetron HCl (Zofran Inj) 4 mg Q6H PRN IV NAUSEA AND/OR VOMITING Last administered on 07/07/17 11:31; Admin Dose 4 MG; Start 07/05/17 at 01:00 Acetaminophen (Tylenol Tab) 650 mg Q6H PRN PO PAIN LEVEL 1-3 OR FEVER; Start at 01:00 Morphine Sulfate (morphine) 2 mg Q4H PRN IV PAIN LEVEL 7-10 Last administered on 07/07/17 11:31; Admin Dose 2 MG; Start 07/05/17 at 01:00 Docusate Sodium (Colace) 100 mg Q12H PRN PO CONSTIPATION Last administered on 01:57; Admin Dose 100 MG; Start 07/05/17 at 01:00 Bisacodyl (Dulcolax) 5 mg DAILY PRN PO CONSTIPATION; Start 07/05/17 at 01:00 Pantoprazole (Protonix Tab) 40 mg DAILY@06 PO Last administered on 07/08/17 05 :13; Admin Dose 40 MG; Start 07/05/17 at 06:00 Nitroglycerin (Nitroglycerin 2% Oint) 1 inch Q12 TD Last administered on 21:17; Admin Dose 1 INCH; Start 07/05/17 at 01:29 Aspirin (Halfprin) 81 mg DAILY PO Last administered on 07/07/17 08:43; Admin Dose 81 MG; Start 07/05/17 at 09:00 Atorvastatin Calcium (Lipitor) 80 mg DAILY PO Last administered on 07/06/17 09 :55; Admin Dose 80 MG; Start 07/05/17 at 09:00 Carvedilol (Coreg) 3.125 mg BID PO Last administered on 07/07/17 21:17; Admin Dose 3.125 MG; Start 07/05/17 at 09:00 Hydrochlorothiazide (Hydrochlorothiazide) 25 mg DAILY PO ; Start 07/05/17 at 09: 00 Insulin Glargine (Lantus) 40 unit QHS SC Last administered on 07/07/17 21:27; Admin Dose 40 UNIT; Start 07/05/17 at 21:00 Isosorbide Dinitrate (Isordil) 5 mg BID PO Last administered on 07/07/17 21:17 ; Admin Dose 5 MG; Start 07/05/17 at 09:00 Ticagrelor (Brilinta) 90 mg Q12 PO Last administered on 07/07/17 21:25; Admin Dose 90 MG; Start 07/05/17 at 09:00 Loratadine (Claritin) 10 mg DAILY PO ; Start 07/05/17 at 09:00 Mometasone Furoate (Asmanex) 1 puff BID INH Last administered on 07/07/17 09: 00; Admin Dose 1 PUFF; Start 07/05/17 at 09:00 Diagnostic Test (Pha) (Accu-Chek) 1 ea 02 XX Last administered on 07/08/17 02: 05; Admin Dose 1 EA; Start 07/05/17 at 02:00 Miscellaneous Information 1 ea NOTE XX ; Start 07/05/17 at 01:30 Glucose (Glutose) 15 gm Q15M PRN PO DECREASED GLUCOSE; Start 07/05/17 at 01:30 Glucose (Glutose) 22.5 gm Q15M PRN PO DECREASED GLUCOSE; Start 07/05/17 at 01: 30 Dextrose (D50w Syringe) 25 ml Q15M PRN IV DECREASED GLUCOSE; Start 07/05/17 at 01:30 Dextrose (D50w Syringe) 50 ml Q15M PRN IV DECREASED GLUCOSE; Start 07/05/17 at 01:30 Glucagon (Glucagen) 1 mg Q15M PRN IM DECREASED GLUCOSE; Start 07/05/17 at 01:30 Glucose (Glutose) 15 gm Q15M PRN BUCCAL DECREASED GLUCOSE; Start 07/05/17 at 01 :30 BRYAN MCKEE MD Jul 08, 2017 09:29
[2017-07-08] MEDS ORDERED: KETO10TA PO (11:18)
--- NOTE | 2017-07-08 18:33 | DS ---
Date/Time of Note Date/Time of Note DATE: 07/08/17 TIME: 18:32 Discharge Summary Admission/Discharge Info Admit Date/Time Jul 04, 2017 at 21:35 Discharge Date/Time Patient Condition: Stable Hx of Present Illness Chief complaint: Left arm pain radiating to the chest This is a 61-year-old woman presents with pressure-like chest pain 1 hour left arm pain all day. Patient states that it started with a left arm pain that then eventually relieved radiated up to her chest. It was 8 out of 10 and a pressure-like sensation. She had a nitroglycerin 1 not helped her. Denies any headaches or shortness of breath. Patient states this discomfort is similar to [place] she experienced a year ago, at that time LAD stent was placed although was complicated by stent thrombosis which was treated medically. She denies chronic or recurrent chest pain and states the last time she had this discomfort was about a year ago. She denies fevers or chills, no cough, no shortness of breath, no loss of consciousness or dizziness, no calf or leg swelling. Allergies: Artificial sweetener, amlodipine, atenolol, candesartan, phenol Profen, lisinopril, losartan, metformin Medications: See MAR Hospital Course Discharge diagnoses Chest pain Pericarditis Pleural effusion Coronary artery disease Diabetes mellitus Osteoarthritis Lupus Hyperlipidemia Hypertension Hospital course Patient is a 61-year-old female with a significant past medical history for coronary artery disease and diabetes who presents with pleuritic chest pain, patient was subsequently seen by cardiology who determined the patient had developed a pericardial effusion and pericarditis and start the patient on colchicine, however patient had a reaction to the colchicine and therefore cardiology started the patient on Toradol which completely alleviated patient's symptoms. 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 Patient will be discharged to continue her home meds and a prescription of Toradol to be taken for 3 days will be given and patient understands she will follow-up with her veterans contact representative within the week. Home Meds Active Scripts Ketorolac Tromethamine* (Ketorolac Tromethamine*) 10 Mg Tablet, 30 MG PO TID, # 10 TAB Prov:TIMOTHY NEW 07/08/17 Meloxicam* (Mobic*) 15 Mg Tablet, 15 MG PO DAILY, #30 TAB Prov:SAMMY HU. 05/20/17 Carvedilol* (Carvedilol*) 3.125 Mg Tablet, 3.125 MG PO BID, #60 TAB Prov:SAMMY HU. 05/20/17 Ticagrelor* (Brilinta*) 90 Mg Tablet, 90 MG PO Q12 for 30 Days, TAB Prov:AR HUANG Shonna 06/18/15 Reported Medications Cetirizine Hcl* (Cetirizine Hcl*) 10 Mg Tablet, 10 MG PO DAILY, #30 TAB 07/04/17 Insulin Glargine* (Lantus*) 100 Unit/Ml Soln, 40 UNIT SC QHS, #1 VIAL BASAGLAR 100UNIT/ML KWIKPEN 07/04/17 Insulin Lispro (Humalog) 100 Unit/1 Ml Cartridge, 12 UNIT SQ BID WITH MEALS 07/04/17 Erythromycin (Erythromycin Opth) 3.5 Gm Oint..gm., 1 APPLIC BOTH EYES DAILY, #1 TUB 07/04/17 Isosorbide Dinitrate* (Isordil*) 5 Mg Tab, 5 MG PO BID, TAB 07/04/17 Hydrocodone/Acetaminophen ([place] 5-325 Tablet) 1 Each Tablet, 1 EACH PO NEEDED, TAB 07/04/17 Albuterol Sulfate* (Ventolin HFA*) 18 Gm Hfa.aer.ad, 1 PUFF INHALATION Q6H, #1 INHALER 07/04/17 Fluticasone Propionate* (Flovent* HFA 220) 12 Gm Inha, 1 PUFF INHALATION BID, # 1 INHALER 07/04/17 Hydrochlorothiazide* (Hydrochlorothiazide*) 25 Mg Tab, 25 MG PO NEEDED, #30 TAB 07/04/17 Nitroglycerin* (Nitrostat*) 0.4 Mg Tab.subl, 0.4 MG SL Q5MIN Y for CHEST PAIN, BOTTLE 08/10/14 Ondansetron Hcl* (Zofran* ODT) 4 mg -ODT Tab.disper, 4 MG PO Q6H Y for NAUSEA, TAB 08/10/14 Atorvastatin* (Atorvastatin*) 80 Mg Tablet, 80 MG PO DAILY, TAB 08/10/14 Aspirin Ec (Aspir 81) 81 Mg Tablet.dr, 81 MG PO DAILY 06/06/14 Discontinued Reported Medications Triamcinolone Acetonide (Triamcinolone Acetonide) 0.1% - 15 Gm Cream.gm., TOP DAILY Y for DRY SKIN, TUB 08/10/14 Ketoconazole* (Ketoconazole*) 60 Gm Cream.gm., 1 APPLIC TOP BID Y for JOCK ITCH , EA 08/10/14 Terbinafine Hcl* (Lamisil*) 1% - 30 Gm Cr, 1 APPLIC TOP DAILY Y for ATHLETE FOOT , TUB 08/10/14 Meloxicam* (Meloxicam*) 7.5 Mg Tablet, 15 MG PO DAILY, TAB 08/10/14 Pantoprazole* (Protonix*) 40 Mg Tablet.dr, 40 MG PO DAILY, TAB 08/10/14 Lactobacillus Acidophilus* (Lactinex*) 1 Tab Chew, 1 TAB PO DAILY, TAB 08/10/14 Sennosides* (Senokot*) 8.6 Mg Tablet, 1-2 TAB PO DAILY, TAB 08/10/14 Docusate Sodium* (Colace*) 100 Mg Capsule, 100 MG PO BID Y for CONSTIPATION, CAP 08/10/14 Beclomethasone Dip (Qvar 80) 1 Puff Inha, 1 PUFF INH DAILY, INH RINSE MOUTH AFTER EACH USE 08/10/14 Insulin Glargine* (Lantus*) 100 Unit/Ml Soln, 50 UNIT SC HS, EA 08/10/14 Carvedilol* (Carvedilol*) 3.125 Mg Tablet, 3.125 MG PO BID, TAB 08/10/14 Hydrocodone Bit-Acetaminophen ([place]) 1 Tab Tablet, 2 TAB PO Q4H Y for PAIN LEVEL 6-10, TAB 06/06/14 Ticagrelor* (Brilinta*) 90 Mg Tablet, 90 MG PO Q12, TAB 06/06/14 Isosorbide Dinitrate* (Isordil*) 5 Mg Tab, 5 MG PO DAILY, TAB 06/06/14 Tramadol HCl (Tramadol HCl) 50 Mg Tab, 100 MG PO Q6H Y for PAIN, TAB 06/06/14 Chlordiazepoxide/Clidinium* (Librax*) 1 Cap Cap 04/21/10 Albuterol Sulfate* (Albuterol Sulfate* HFA) 8.5 Gm Hfa.aer.ad 04/21/10 Insulin Lispro (Humalog) 100 U/Ml Vial 04/21/10 Discontinued Scripts Ciprofloxacin Hcl* (Ciprofloxacin Hcl*) 500 Mg Tablet, 500 MG PO BID for 7 Days , TAB Prov:SAMMY HU 05/20/17 Carvedilol* (Carvedilol*) 6.25 Mg Tablet, 6.25 MG PO BID, #60 TAB Prov:SAMMY HU 05/20/17 Cephalexin* (Keflex*) 500 Mg Capsule, 500 MG PO QID for 14 Days, CAP Prov:AR HUANG C 06/18/15 Furosemide (Lasix) 20 Mg Tab, 20 MG PO DAILY, #30 TAB Prov:STIVEN GAMBOA MD 08/12/14 Ciprofloxacin Hcl* (Ciprofloxacin Hcl*) 500 Mg Tablet, 500 MG PO BID, #30 TAB Prov:STIVEN GAMBOA MD 08/12/14 Primary Care Provider Bakari Sullivan MD Time spent on discharge: > 30 minutes Pending Labs Laboratory Tests Test 07/07/17 21:14 07/08/17 01:59 07/08/17 08:19 07/08/17 11:10 Bedside Glucose 235mg/dL (70-220) 158mg/dL (70-220) 204mg/dL (70-220) 131mg/dL (70-220) Test 07/08/17 17:11 Bedside Glucose 175mg/dL (70-220) TIMOTHY NEW Jul 08, 2017 18:33
== END 2017-07-08 18:10 | disposition home or self-care (01) | DRG 316 ==
LOC: E/R 19:23 → TEL 21:35
PROVIDERS: ADMIT Family Medicine; ATTEND Family Medicine
DX: I31.3 Pericardial effusion (noninflammatory) (principal); M32.12 Pericarditis in systemic lupus erythematosus; M32.9 Systemic lupus erythematosus, unspecified; M79.602 Pain in left arm; E11.9 Type 2 diabetes mellitus without complications; M17.0 Bilateral primary osteoarthritis of knee; I10 Essential (primary) hypertension; E78.5 Hyperlipidemia, unspecified; R07.89 Other chest pain; I25.10 Atherosclerotic heart disease of native coronary artery without angina pectoris; I25.2 Old myocardial infarction; Z79.4 Long term (current) use of insulin; Z95.5 Presence of coronary angioplasty implant and graft; Z99.3 Dependence on wheelchair; E66.9 Obesity, unspecified; Z68.36 Body mass index [BMI] 36.0-36.9, adult
CPT/HCPCS: 71010; 80048; 80053; 80061; 82550; 82553; 82962; 83036; 83690; 83735; 83880; 84075; 84100; 84443; 84484; 85025; 93005; 93306; J1815; J1885; J2270; J2405

== ENCOUNTER 2017-07-16 02:03 | Inpatient (IN) | payer OTHER ==
[~2017-07-16] VITALS: Ht 160 cm; Wt 102.0 kg
[2017-07-16] VITALS (8 sets, daily range): BP systolic 127–192; BP diastolic 60–93; PULSE 69–71; RESP 16–19; TEMP 98.7; Ht 160 cm; Wt 102.0 kg
[~2017-07-16 02:03] MED LIST changes: +ALBU18HF INHALATION; -ALBU8.5H5; -BCL80INH INH; -CARV6.2579 PO; -CEPH-443 PO; +CETI-240 PO; -CHLO1CAP56; -CIPR500T4 PO; -DOCU-144 PO; +ERYT1OIN6 BOTH EYES; +FLOV220 INHALATION; +HYD25 PO; +INSU100C SQ; -INSU100V18; +KETO10TA PO; -KETO15CR TOP; -LACTINEX PO; -LAM1CR24 TOP; -LAS20 PO; -MELO-109 PO; -PANT40TA3 PO; -SENN-36 PO; -TRAM50TA2 PO; -TRIA15CR55 TOP
--- NOTE | 2017-07-16 03:58 | RADRPT ---
PROCEDURE: Chest. CLINICAL INDICATION: Chest pain. TECHNIQUE: Single frontal view of the chest was obtained. COMPARISON: 07/04/2017. FINDINGS: The cardiac silhouette is within normal limits. The aortic arch is unremarkable. There is no focal consolidation, vascular congestion or pleural effusion. There is no pneumothorax. IMPRESSION: No evidence for active cardiopulmonary disease. .Bebo Solomon MD, Date Time Electronically viewed and signed by .Bebo Solomon MD, on 07/16/2017 03:57 .T/
[2017-07-16 04:35] LABS: BASOPHIL # 0.1 10^3/ul (0.0-0.1); BASOPHILS % 0.4 % (0.0-2.0); EOSINOPHILS # 0.5 10^3/ul (0.0-0.5); EOSINOPHILS % 4.2 % (0.0-7.0); HEMATOCRIT 43.6 % (37.0-47.0); HEMOGLOBIN 14.6 g/dl (12.0-16.0); LYMPHOCYTES # 2.8 10^3/ul (0.8-2.9); LYMPHOCYTES % 24.8 % (15.0-51.0); MEAN CORPUSCULAR HEMOGLOBIN 28.5 pg (29.0-33.0); MEAN CORPUSCULAR HGB CONC 33.5 g/dl (32.0-37.0); MEAN PLATELET VOLUME 9.4 fl (7.4-10.4); MONOCYTE # 0.9 10^3/ul (0.3-0.9); MONOCYTES % 7.6 % (0.0-11.0); NEUTROPHILS % 62.6 % (39.0-77.0); PLATELET COUNT 422 10^3/UL (140-415); RED BLOOD COUNT 5.13 10^6/ul (4.20-5.40); RED CELL DISTRIBUTION WIDTH 13.2 % (11.5-14.5); WHITE BLOOD COUNT 11.4 10^3/ul (4.8-10.8)
[2017-07-16 04:57] LABS: ALANINE AMINOTRANSFERASE 48 IU/L (13-69); ALBUMIN 4.1 g/dl (3.3-4.9); ALBUMIN/GLOBULIN RATIO 1.07; ALKALINE PHOSPHATASE 140 IU/L (42-121); ANION GAP 19 (8-16); ASPARTATE AMINO TRANSFERASE 29 IU/L (15-46); BILIRUBIN,INDIRECT 0.4 mg/dl (0-1.1); BILIRUBIN,TOTAL 0.4 mg/dl (0.2-1.3); BLOOD UREA NITROGEN 13 mg/dl (7-20); CALCIUM 10.1 mg/dl (8.4-10.2); CARBON DIOXIDE 26 mmol/L (21-31); CHLORIDE 99 mmol/L (97-110); GLUCOSE 165 mg/dl (70-220); POTASSIUM 4.2 mmol/L (3.5-5.1); SODIUM 140 mmol/L (135-144); TOTAL PROTEIN 7.9 g/dl (6.1-8.1)
[2017-07-16 05:06] LABS: B-TYPE NATRIURETIC PEPTIDE 64 PG/ML (0-125)
[2017-07-16] MEDS ORDERED: KETOROLAC 30 MG INJ IV ONE (05:17)
[2017-07-16 05:24] LABS: TROPONIN-I < 0.012 ng/ml (0.00-0.12)
--- NOTE | 2017-07-16 05:24 | ERA ---
ER Documentation Chief Complaint Date/Time DATE: 07/16/17 TIME: 05:23 Chief Complaint chest pain radaiting to neck and left arm x 3 days HPI 61-year-old female chest pain rating to left neck and arm for 3 days. Diagnosed pericarditis recently discharged. Said the pain started coming back. Pain is mild to moderate intensity tenderness to the back. No other current complaints. ROS All systems reviewed and are negative except as per history of present illness. Medications Home Meds Active Scripts Ketorolac Tromethamine* (Ketorolac Tromethamine*) 10 Mg Tablet, 30 MG PO TID, # 10 TAB Prov:TIMOTHY NEW 07/08/17 Meloxicam* (Mobic*) 15 Mg Tablet, 15 MG PO DAILY, #30 TAB Prov:SAMMY HU 05/20/17 Carvedilol* (Carvedilol*) 3.125 Mg Tablet, 3.125 MG PO BID, #60 TAB Prov:SAMMY HU 05/20/17 Ticagrelor* (Brilinta*) 90 Mg Tablet, 90 MG PO Q12 for 30 Days, TAB Prov:AR HUANG 06/18/15 Reported Medications Cetirizine Hcl* (Cetirizine Hcl*) 10 Mg Tablet, 10 MG PO DAILY, #30 TAB 07/04/17 Insulin Glargine* (Lantus*) 100 Unit/Ml Soln, 40 UNIT SC QHS, #1 VIAL BASAGLAR 100UNIT/ML KWIKPEN 07/04/17 Insulin Lispro (Humalog) 100 Unit/1 Ml Cartridge, 12 UNIT SQ BID WITH MEALS 07/04/17 Erythromycin (Erythromycin Opth) 3.5 Gm Oint..gm., 1 APPLIC BOTH EYES DAILY, #1 TUB 07/04/17 Isosorbide Dinitrate* (Isordil*) 5 Mg Tab, 5 MG PO BID, TAB 07/04/17 Hydrocodone/Acetaminophen ([place] 5-325 Tablet) 1 Each Tablet, 1 EACH PO NEEDED, TAB 07/04/17 Albuterol Sulfate* (Ventolin HFA*) 18 Gm Hfa.aer.ad, 1 PUFF INHALATION Q6H, #1 INHALER 07/04/17 Fluticasone Propionate* (Flovent* HFA 220) 12 Gm Inha, 1 PUFF INHALATION BID, # 1 INHALER 07/04/17 Hydrochlorothiazide* (Hydrochlorothiazide*) 25 Mg Tab, 25 MG PO NEEDED, #30 TAB 07/04/17 Nitroglycerin* (Nitrostat*) 0.4 Mg Tab.subl, 0.4 MG SL Q5MIN Y for CHEST PAIN, BOTTLE 08/10/14 Ondansetron Hcl* (Zofran* ODT) 4 mg -ODT Tab.disper, 4 MG PO Q6H Y for NAUSEA, TAB 08/10/14 Atorvastatin* (Atorvastatin*) 80 Mg Tablet, 80 MG PO DAILY, TAB 08/10/14 Aspirin Ec (Aspir 81) 81 Mg Tablet.dr, 81 MG PO DAILY 06/06/14 Allergies Allergies: Coded Allergies: fenoprofen (Verified Allergy, Mild, RASH, 07/04/17) lisinopril (Verified Adverse Reaction, Intermediate, 07/04/17) AFFECTING HER ASTHMA losartan (Unverified Adverse Reaction, Intermediate, IRREGULAR HEARTBEAT; CHEST PRESSURE, 07/04/17) metformin (Verified Adverse Reaction, Intermediate, 07/04/17) EXTREMELY DROWSY amlodipine (Verified Adverse Reaction, Mild, 07/04/17) atenolol (Verified Adverse Reaction, Mild, CHEST PRESSURE, 07/04/17) candesartan (Verified Adverse Reaction, Mild, 07/04/17) Uncoded Allergies: ARTIFICIAL SWEETENER (Adverse Reaction, Mild, 04/21/10) PMhx/Soc History of Surgery: Yes (stent) Anesthesia Reaction: No Hx Neurological Disorder: No Hx Respiratory Disorders: No Hx Cardiac Disorders: Yes Hx Psychiatric Problems: No Hx Miscellaneous Medical Probl: No Hx Alcohol Use: No Hx Substance Use: No Hx Tobacco Use: No Smoking Status: Never smoker Physical Exam Vitals Vital Signs Date Time Temp Pulse Resp B/P Pulse Ox O2 Delivery O2 Flow Rate FiO2 07/16/17 04:46 98.6 71 20 143/77 98 Room Air 07/16/17 02:07 97.8 75 20 162/77 97 Physical Exam Const: [] Head: Atraumatic Eyes: Normal Conjunctiva ENT: Normal External Ears, Nose and Mouth. Neck: Full range of motion..~ No meningismus. Resp: Clear to auscultation bilaterally Cardio: Regular rate and rhythm, no murmurs Abd: Soft, non tender, non distended. Normal bowel sounds Skin: No petechiae or rashes Back: No midline or flank tenderness Ext: No cyanosis, or edema Neur: Awake and alert Psych: Normal Mood and Affect Result Diagram: 07/16/1741907/16/17419 Results 24 hrs Laboratory Tests Test 07/16/17 04:20 White Blood Count 11.410^3/ul Red Blood Count 5.1310^6/ul Hemoglobin 14.6g/dl Hematocrit 43.6% Mean Corpuscular Volume 85.0fl Mean Corpuscular Hemoglobin 28.5pg Mean Corpuscular Hemoglobin Concent 33.5g/dl Red Cell Distribution Width 13.2% Platelet Count 37528^3/UL Mean Platelet Volume 9.4fl Neutrophils % 62.6% Lymphocytes % 24.8% Monocytes % 7.6% Eosinophils % 4.2% Basophils % 0.4% Nucleated Red Blood Cells % 0.0/100WBC Neutrophils # (Manual) 710^3/ul Lymphocytes # 2.810^3/ul Monocytes # 0.910^3/ul Eosinophils # 0.510^3/ul Basophils # 0.110^3/ul Nucleated Red Blood Cells # 0.010^3/ul Sodium Level 140mmol/L Potassium Level 4.2mmol/L Chloride Level 99mmol/L Carbon Dioxide Level 26mmol/L Anion Gap 19 Blood Urea Nitrogen 13mg/dl Creatinine 0.60mg/dl Glucose Level 165mg/dl Calcium Level 10.1mg/dl Total Bilirubin 0.4mg/dl Direct Bilirubin 0.00mg/dl Indirect Bilirubin 0.4mg/dl Aspartate Amino Transf (AST/SGOT) 29IU/L Alanine Aminotransferase (ALT/SGPT) 48IU/L Alkaline Phosphatase 140IU/L Troponin I Pending B-Type Natriuretic Peptide Pending Total Protein 7.9g/dl Albumin 4.1g/dl Globulin 3.80g/dl Albumin/Globulin Ratio 1.07 Current Medications Medications (Trade) Dose Ordered Sig/Kristel Route PRN Reason Start Time Stop Time Status Last Admin Dose Admin Ketorolac Tromethamine (Toradol) 30 mg ONCE ONCE IV 07/16/17 05:17 07/16/17 05:18 DC Procedures/[facility] EKG: Rate/Rhythm: Normal Sinus Rhythm QRS, ST, T-waves: No changes consistent w/ acute ischemia Impression: No evidence of ischemia or arrhythmia Chest X-ray 1V Interpreted by me: Soft Tissue: No acute abnormalities Bones: No acute abnormalities Mediastinum/Cardiac Silhouette/Lungs: No acute abnormalities Patient's symptoms are concerning for cardiac cause will require inpatient workup and continuous monitoring. Further w/u for ischemia, arrhythmia, PE or dissection will be deferred to the inpatient team. Accepting Care Team: Current data and ongoing care discussed. Time: 5 AM Primary Provider: Hospitalist Consulting: [XOXOXO] Outstanding Data: none Departure Diagnosis: Primary Impression: Chest pain Qualified Code: R07.9 - Chest pain, unspecified type Condition: Stable SAMMY HU Jul 16, 2017 05:23
[2017-07-16] MEDS ORDERED: ONDANSETRON 4 MG INJ IV STA (06:55)
[2017-07-16] MEDS ORDERED: morphine 4 MG/ML VIAL IV STA (06:55)
[2017-07-16] MEDS ORDERED: NITROGLYCERIN 2% 1 GM OINT PKT TD STA (07:07)
--- NOTE | 2017-07-16 07:25 | QN ---
Documentation Comment Patient is being admitted for CP r/o. dictated report to follow Dr Chaves consulted. KALPESH BROWN Jul 16, 2017 07:24
[2017-07-16] MEDS ORDERED: NITROGLYCERIN (SL) 0.4 MG TAB SL PRN (07:30)
[2017-07-16 07:41] LABS: ADD UMIC NO; UR ASCORBIC ACID NEGATIVE (NEGATIVE); UR BILIRUBIN (Dip) NEGATIVE (NEGATIVE); UR BLOOD (Dip) NEGATIVE (NEGATIVE); UR CLARITY CLEAR (CLEAR); UR COLOR STRAW (YELLOW); UR GLUCOSE (Dip) NEGATIVE (NEGATIVE); UR KETONES (Dip) NEGATIVE (NEGATIVE); UR LEUKOCYTE ESTERASE (Dip) NEGATIVE Leu/ul (NEGATIVE); UR NITRITE (Dip) NEGATIVE (NEGATIVE); UR SPECIFIC GRAVITY (Dip) 1.006 (1.003-1.030); UR TOTAL PROTEIN (Dip) NEGATIVE (NEGATIVE); UR UROBILINOGEN (Dip) NEGATIVE (NEGATIVE)
[2017-07-16] MEDS ORDERED: GLUCOSE GEL 15 GRAM TUBE PO PRN ×2 (08:00)
[2017-07-16] MEDS ORDERED: DEXTROSE 50% 50 ML SYRINGE IV PRN ×2 (08:00)
[2017-07-16] MEDS ORDERED: GLUCAGON 1 MG INJ IM PRN (08:00)
[2017-07-16] MEDS ORDERED: GLUCOSE GEL 15 GRAM TUBE BUCCAL PRN (08:00)
[2017-07-16] MEDS: HYDROCODONE/APAP (5/325) TAB PO SCH ×4 (08:40→23:34)
[2017-07-16] MEDS: MOMETASONE 0.24 GM INHALER INH SCH ×2 (09:00→21:00)
[2017-07-16] MEDS ORDERED: ASPIRIN (EC) 81 MG TAB PO SCH (09:00)
[2017-07-16] MEDS ORDERED: NON-FORMULARY/PATIENT OWN MED (Cetirizine Hcl* 10 MG) PO SCH (09:00)
[2017-07-16] MEDS ORDERED: ISOSORBIDE DINITRATE 5 MG TAB PO SCH (09:00)
[2017-07-16] MEDS ORDERED: ATORVASTATIN 80 MG TAB PO SCH (09:00)
[2017-07-16] MEDS: LORATADINE 10 MG TAB PO SCH (09:00)
[2017-07-16] MEDS ORDERED: FLUTICASONE PROPIONATE INHALATION SCH (09:00)
[2017-07-16] MEDS: TICAGRELOR 90 MG TABLET PO SCH ×2 (09:08→21:13)
[2017-07-16] MEDS: ERYTHROMYCIN 1 GM OPH OINT BOTH EYES SCH (09:09)
[2017-07-16] MEDS: INSULIN ASPART [NOVOLOG] 3 ML PEN SC SCH ×6 (09:13→17:55)
[2017-07-16] MEDS: ALBUTEROL 18 GM INHALER INH SCH ×3 (09:13→20:00)
--- NOTE | 2017-07-16 10:22 | HP ---
DATE OF ADMISSION: 07/16/2017 PRESENTING COMPLAINT: Chest pain. HISTORY OF PRESENT ILLNESS: This is a 61-year-old female with a past medical history of diabetes, coronary artery disease, and recent pericarditis, as well as lupus, who comes in today with complaints of mid sternal chest pain. Pain was said to have started about 3 days ago and has slowly been worsening. Pain is said to radiate to the left neck and the arm. The patient states that the pain is similar to the pain of her pericarditis and it does radiate to her back as well. There, however, has been no fever. She does have occasional shortness of breath. She has been feeling more lethargic. She denies cough. Denies palpitations. Denies passing out episodes. Denies abdominal pain, blood in stool or hematuria. REVIEW OF SYSTEMS: Twelve point review of systems was done. Pertinent findings are noted in the HPI. PAST MEDICAL HISTORY: Positive for: 1. Underlying lupus. 2. Coronary artery disease, status post stenting the past. 3. Diabetes mellitus. 4. Hypertension. 5. Dyslipidemia. 6. Status post myocardial infarction. 7. History of pericardial effusion with pericarditis. PAST SURGICAL HISTORY: Includes cardiac stenting. ALLERGIES: SHE IS ALLERGIC TO: ARTIFICIAL SWEETENERS. AMLODIPINE. ATENOLOL. CANDESARTAN. FENOPROFEN. LISINOPRIL. LOSARTAN. METFORMIN. MEDICATIONS: These have been reviewed and reconciled. SOCIAL HISTORY: Patient denies tobacco, alcohol or illicit drug use. FAMILY HISTORY: Positive for heart disease. PHYSICAL EXAMINATION: VITAL SIGNS: Temperature 98.7, pulse 67, respirations 22, blood pressure 166/86, saturation is 97 percent on room air. GENERAL APPEARANCE: The patient was alert and oriented, in no distress. HEENT: Head was normocephalic and atraumatic with equal and reactive pupils. Extraocular muscles were intact. Mucous membranes were moist. Posterior pharynx was clear of erythema or exudate. NECK: Supple without adenopathy or JVD. CHEST: The patient seemed to have some tenderness to palpation over the mid and left chest, but she had clear lungs to auscultation without crackles or wheezes. ABDOMEN: Soft, nontender, nondistended. Normoactive bowel sounds. EXTREMITIES: Without edema. The patient clinically ambulates with walker due to arthritis. NEUROLOGIC: She had no focal deficits. SKIN: Devoid of rash or jaundice. DATA: Today she has leukocytosis of 11,000 and a low MCH and platelet count of 422, which is mildly elevated. On her chemistry, there was no significant abnormality. Magnesium was normal. Point of care glucose was mildly elevated at 165. Coag profile was not done today. IMAGING: She had a chest x-ray, which was officially read by Radiology, but I also reviewed the pictures, did not show any active cardiopulmonary disease. An EKG was also reviewed by myself and this showed normal sinus rhythm with normal rate without evidence of ischemia or arrhythmia. IMPRESSION: A 61-year-old female, who presents with a 3-day history of mid sternal/left-sided chest pain with the followin. Chest pain, rule out acute coronary syndrome. 2. History of coronary artery disease, status post stent in the past. 3. History of lupus pericarditis. 4. Chronic lupus. 5. Chronic osteoarthritis. 6. Diabetes mellitus with suboptimal control. Last A1c this month was 8.0. 7. Dyslipidemia. 8. Hypertension, also with suboptimal control. PLAN: Admit patient to telemetry floor and complete ACS rule out. Cardiology consultation with her own donor services manager, Dr. Chaves, will be obtained. The patient incidentally had a 2D echo earlier this month, but did not show any significant abnormality other than a small pericardial effusion, so I do not think there is any indication to repeat that at this point; however, we will defer to Cardiology. I have also provided supportive care with pain control, antiemetics and antipyretics as needed. This plan of care has been discussed with patient. Questions have been answered. For prophylaxis, she will be put on Lovenox and PPIs. Dictated By: Radha Mueller MD /ilene/nickolas /Document#: [id number]
[2017-07-16] MEDS: IBUPROFEN 600 MG TAB PO SCH ×3 (13:39→22:00)
[2017-07-16] MEDS ORDERED: COLCHICINE 0.6 MG TAB PO ONE (17:30)
[2017-07-16] MEDS ORDERED: NIFEdipine 10 MG CAP PO SCH (18:30)
[2017-07-16] MEDS ORDERED: hydrALAzine 20 MG INJ IV PRN (18:30)
[2017-07-16] MEDS: NITROGLYCERIN (SL) 0.4 MG TAB SL PRN ×2 (18:43→19:04)
[2017-07-16] MEDS ORDERED: KETOROLAC 15 MG INJ IV STA (18:49)
[2017-07-16] MEDS ORDERED: LEVOFLOXACIN 500 MG TAB PO ONE (19:00)
[2017-07-16] MEDS: RANITIDINE 150 MG TAB PO SCH (21:00)
[2017-07-16] MEDS: INSULIN GLARGINE [LANtus] 3 ML PEN SC SCH (21:00)
[2017-07-16] MEDS: CEFTRIAXONE 1 GM/50 ML (PMX) 50 ML IVPB SCH (21:04)
[2017-07-16] MEDS: ISOSORBIDE DINITRATE 5 MG TAB PO SCH (23:21)
[2017-07-17] VITALS (12 sets, daily range): BP systolic 126–176; BP diastolic 60–93; PULSE 66–79; RESP 16–18
[2017-07-17] MEDS: INSULIN ASPART [NOVOLOG] 3 ML PEN SC SCH ×7 (00:03→21:16)
[2017-07-17] MEDS: ACCU-CHEK XX SCH (02:00)
[2017-07-17] MEDS: ALBUTEROL 18 GM INHALER INH SCH (02:00)
--- NOTE | 2017-07-17 03:02 | CONS ---
DATE OF ADMISSION: 07/16/2017 DATE OF CONSULTATION: 07/16/2017 REASON FOR CONSULTATION: Chest pain. Assess for acute coronary syndrome. HISTORY OF PRESENT ILLNESS: Ms. Hillman is a 61-year-old female, known to myself as a primary office patient, with a history of prior myocardial infarction status post PTCA and stent placement approximately 2 years prior to [facility], hypertension, diabetes mellitus, dyslipidemia, and lupus, who had recently been admitted with complaints of substernal chest pain on July 04, 2017. At that time, she was ruled out for myocardial infarction. Negative troponins. She underwent a 2D echo revealing a preserved left ventricular function with ejection fraction with a small pericardial effusion. The patient subsequently was discharged home on Toradol. She states she took the Toradol, and once she stopped taking the Toradol for approximately 5 days, the chest pain returned, thus the patient presented to the ER. Initially upon arrival, temperature 97.8, blood pressure 116/77, pulse 78, respiratory rate 20, pulse ox 97 percent. LABORATORY: Revealed a white count of 11.4, hemoglobin of 14.6, platelet count of 422. Sodium 140, potassium 4.2, creatinine of 0.6, BUN 13. Troponin negative. CRP less than 0.5. BNP of 64. UA is negative. The patient underwent a chest x-ray, revealing no evidence for active cardiopulmonary disease. The patient's electrocardiogram revealed normal sinus rhythm, rate of 73, level tension in some of the precordial and limb leads. Nonspecific ST and T abnormalities. The patient was subsequently admitted to the floor. Since being admitted to the floor, she has had continued chest pain. The patient has stable blood pressures. No significant tachycardia. PAST MEDICAL HISTORY: As above in HPI. MEDICATION: 1. Lovenox 1 subcu daily. 2. Protonix 40 mg daily. 3. Lantus 20 units subcu q.h.s. 4. Zantac 150 mg b.i.d. 5. Ibuprofen 650 mg p.o. q.8. 6. Atorvastatin 80 mg at bedtime. 7. Carvedilol 3.125 mg p.o. b.i.d. 8. Isordil 5 mg b.i.d. 9. Brilinta 90 mg q.12. 10. Albuterol p.r.n. 11. Claritin p.r.n. 12. Nitroglycerin p.r.n. ALLERGIES: NORVASC, ATENOLOL, CANDESARTAN, LISINOPRIL, LOSARTAN, AND METFORMIN. SOCIAL HISTORY: No tobacco, EtOH, or illicit drug use. FAMILY HISTORY: No history of sudden cardiac or early CAD. REVIEW OF SYSTEMS: As above in HPI. CONSTITUTIONAL: No fevers or chills. RESPIRATORY: No current shortness of breath. CARDIOVASCULAR: Positive chest pain. GASTROINTESTINAL: No vomiting. GENITOURINARY: No hematuria. MUSCULOSKELETAL: Degenerative joint disease. PSYCH: The patient has depression. NEUROLOGIC: No documented history. PHYSICAL EXAMINATION: VITAL SIGNS: Temperature of 98, blood pressure most recent 127/60, pulse 65, respirations 16, sating 97 percent. GENERAL: The patient is alert, awake, complaining of substernal chest pain. NECK: JVP approximately 8 cm of water. LUNGS: Fair air movement throughout. HEART: Regular rate and rhythm. Normal S1, S2 and 1/6 systolic murmur. Nondisplaced PMI. ABDOMEN: Positive bowel sounds. Soft. EXTREMITIES: No pitting edema. One plus pulses bilaterally. LABS: As above in HPI. IMAGING STUDIES: As above in HPI. No further imaging studies are reviewed at this time. ECG as above in HPI. No further images reviewed at this time. IMPRESSION: 1. Chest pain. Assess for acute coronary syndrome. 2. History of percutaneous transluminal coronary angioplasty and stent placement 2 years prior. 3. EKG with nonspecific ST-T abnormalities and low voltage. 4. History of small pericardial effusion approximately 10 days prior. 5. History of recent diagnosis of pericarditis. 6. Hypertension, labile. 7. Dyslipidemia. 8. History of lupus. RECOMMENDATIONS: 1. At this time, would maintain patient on telemetry monitoring to follow rhythm and rate control closely. 2. Would check serial EKGs. EKG in the morning. EKG for any complaint of chest pain or change in rhythm. 3. Would continue the patient's current carvedilol as tolerated and Isordil. Will increase the patient's dose of Isordil. Follow blood pressure and symptomatology closely. 4. We would do a limited echo just to assess for any ongoing or increase in size of a pericardial effusion. 5. Ibuprofen has been started for treatment of possible probable pericarditis. 6. The patient ruled out for myocardial infarction. We will additionally consider inpatient stress testing to rule out any possible acute coronary syndrome, such as unstable angina leading to this patient's chest pain, requiring admission to the hospital, given history of stent. Thank you for allowing me to take part in the care of this patient. I will continue to follow closely with you. Dictated By: Jael Lugo /fnt/grs /Document#: [id number] CC: Radha Mueller MD;*End*
[2017-07-17] MEDS: IBUPROFEN 600 MG TAB PO SCH ×3 (06:23→22:49)
[2017-07-17] MEDS: PANTOPRAZOLE (EC) 40 MG TAB PO SCH (06:23)
[2017-07-17] MEDS: HYDROCODONE/APAP (5/325) TAB PO SCH ×3 (06:35→21:00)
[2017-07-17 07:34] LABS: BASOPHIL # 0.1 10^3/ul (0.0-0.1); BASOPHILS % 0.6 % (0.0-2.0); EOSINOPHILS # 0.5 10^3/ul (0.0-0.5); EOSINOPHILS % 5.1 % (0.0-7.0); HEMATOCRIT 43.4 % (37.0-47.0); HEMOGLOBIN 14.1 g/dl (12.0-16.0); LYMPHOCYTES # 2.7 10^3/ul (0.8-2.9); LYMPHOCYTES % 26.3 % (15.0-51.0); MEAN CORPUSCULAR HEMOGLOBIN 28.3 pg (29.0-33.0); MEAN CORPUSCULAR HGB CONC 32.5 g/dl (32.0-37.0); MEAN CORPUSCULAR VOLUME 87.1 fl (82.0-101.0); MEAN PLATELET VOLUME 9.7 fl (7.4-10.4); MONOCYTE # 0.9 10^3/ul (0.3-0.9); MONOCYTES % 9.1 % (0.0-11.0); NEUTROPHILS % 58.4 % (39.0-77.0); PLATELET COUNT 381 10^3/UL (140-415); RED BLOOD COUNT 4.98 10^6/ul (4.20-5.40); RED CELL DISTRIBUTION WIDTH 13.3 % (11.5-14.5); WHITE BLOOD COUNT 10.1 10^3/ul (4.8-10.8)
[2017-07-17] MEDS: MOMETASONE 0.24 GM INHALER INH SCH ×2 (08:54→21:00)
[2017-07-17] MEDS: LORATADINE 10 MG TAB PO SCH (08:54)
[2017-07-17] MEDS: RANITIDINE 150 MG TAB PO SCH ×2 (08:56→20:59)
[2017-07-17] MEDS: TICAGRELOR 90 MG TABLET PO SCH ×2 (08:59→20:57)
[2017-07-17] MEDS: ENOXAPARIN 40 MG/0.4 ML SYG SC SCH (09:00)
[2017-07-17] MEDS ORDERED: ATORVASTATIN 80 MG TAB PO SCH (09:00)
[2017-07-17] MEDS: ISOSORBIDE DINITRATE 5 MG TAB PO SCH (09:01)
[2017-07-17 09:18] LABS: CHOL/HDL RATIO 3.8 RATIO
[2017-07-17 09:20] LABS: CALCIUM 9.7 mg/dl (8.4-10.2); CREATININE 0.79 mg/dl (0.44-1.00)
--- NOTE | 2017-07-17 11:46 | CONS ---
Date/Time of Note Date/Time of Note DATE: 07/17/17 TIME: 11:41 Assessment/Plan Assessment/Plan Chief Complaint/Hosp Course IMPRESSION: 1. Chest pain. -negative trop x 3 2. History of percutaneous transluminal coronary angioplasty and stent placement 2 years prior. 3. EKG with nonspecific ST-T abnormalities and low voltage. 4. History of small pericardial effusion approximately 10 days prior. 5. History of recent diagnosis of pericarditis. 6. Hypertension, labile. 7. Dyslipidemia. 8. History of lupus. REcc: -tele -serial ecg's -unable to have stress test today due to no nuclear tech available -Continue coreg -increase isordil and f/u CP/BP -start additional anti-hypertensives as necessary to improve BP control -Will consider repeat trial of colchicine as necessary and have discussed with patient -Continue NSAIDS/brilinta -Will f/u repeat echo Problems: Consultation Date/Type/Reason Admit Date/Time Jul 16, 2017 at 05:24 Initial Consult Date 07/16/2017 Type of Consultation: cardiology Reason for Consultation chest pain Referring Provider: KALPESH BROWN Exam/Review of Systems Vital Signs Vitals Vital Signs Date Time Temp Pulse Resp B/P Pulse Ox O2 Delivery O2 Flow Rate FiO2 07/17/17 11:15 98.5 70 16 136/60 98 07/16/17 11:55 Room Air Intake and Output 07/16/17 07/16/17 07/17/17 15:00 23:00 07:00 Intake Total 700 ml 500 ml Balance 700 ml 500 ml Exam Review of Systems: CONSTITUTIONAL: No fevers, chills. PULMONARY: No sob CARDIOVASCULAR: positive chest pain GASTROINTESTINAL: No nausea/vomiting. GENITOURINARY: No hematuria/dysuria. MUSCULOSKELETAL: No myagias/arthalgias. PSYCHIATRIC: The patient denies depression. NEUROLOGIC: No weakness Constitutional: alert Psych: no complaints Head: normocephalic ENMT: mucosa pink and moist Neck: jvd (8 cm water), supple Respiratory: diminished breath sounds (at bases/B) Cardiovascular: regular rate and rhythm Gastrointestinal: non-tender, soft Musculoskeletal: muscle weakness (LE) Extremities: edema (none) Neurological: focal weakness Results Result Diagram: 07/17/17 0615 07/17/17 0615 Results 24 hrs Laboratory Tests Test 07/16/17 12:23 07/16/17 12:36 07/16/17 17:14 07/16/17 18:56 Troponin I < 0.012 < 0.012 C-Reactive Protein < 0.5 Bedside Glucose 235 H 239 H Test 07/16/17 21:33 07/16/17 23:31 07/17/17 00:36 07/17/17 06:15 Bedside Glucose 199 185 Troponin I < 0.012 White Blood Count 10.1 Red Blood Count 4.98 Hemoglobin 14.1 Hematocrit 43.4 Mean Corpuscular Volume 87.1 Mean Corpuscular Hemoglobin 28.3 L Mean Corpuscular Hemoglobin Concent 32.5 Red Cell Distribution Width 13.3 Platelet Count 381 Mean Platelet Volume 9.7 Neutrophils % 58.4 Lymphocytes % 26.3 Monocytes % 9.1 Eosinophils % 5.1 Basophils % 0.6 Nucleated Red Blood Cells % 0.0 Neutrophils # (Manual) 6 Lymphocytes # 2.7 Monocytes # 0.9 Eosinophils # 0.5 Basophils # 0.1 Nucleated Red Blood Cells # 0.0 Sodium Level 138 Potassium Level 4.0 Chloride Level 100 Carbon Dioxide Level 29 Anion Gap 13 Blood Urea Nitrogen 17 Creatinine 0.79 Glucose Level 218 Calcium Level 9.7 Triglycerides Level 238 H Cholesterol Level 208 H LDL Cholesterol, Calculated 106 HDL Cholesterol 54 Cholesterol/HDL Ratio 3.8 Test 07/17/17 08:26 Bedside Glucose 193 Medications Medications Current Medications Aspirin (Halfprin) 81 mg DAILY PO Last administered on 07/16/17 08:42; Admin Dose 81 MG; Start 07/16/17 at 09:00; Status Future Hold Erythromycin (Erythromycin Oph Oint) 1 applic DAILY BOTH EYES Last administered on 07/16/17 09:09; Admin Dose 1 APPLIC; Start 07/16/17 at 09:00 Acetaminophen/ Hydrocodone Bitart ([place] (5/325)) 1 tab Q6H PO Last administered on 07/17/17 06:35; Admin Dose 1 TAB; Start 07/16/17 at 07:30 Insulin Glargine (Lantus) 25 unit QHS SC ; Start 07/16/17 at 21:00 Nitroglycerin (Nitroglycerin (Sl Tab) 0.4 Mg) 1 tab [id number] PRN SL CHEST PAIN Last administered on 07/16/17 19:04; Admin Dose 1 TAB; Start 07/16/17 at 07:30 Ticagrelor (Brilinta) 90 mg Q12 PO Last administered on 07/17/17 08:59; Admin Dose 90 MG; Start 07/16/17 at 09:00 Diagnostic Test (Pha) (Accu-Chek) 1 ea 02 XX ; Start 07/17/17 at 02:00 Miscellaneous Information 1 ea NOTE XX ; Start 07/16/17 at 08:00 Glucose (Glutose) 15 gm Q15M PRN PO DECREASED GLUCOSE; Start 07/16/17 at 08:00 Glucose (Glutose) 22.5 gm Q15M PRN PO DECREASED GLUCOSE; Start 07/16/17 at 08: 00 Dextrose (D50w Syringe) 25 ml Q15M PRN IV DECREASED GLUCOSE; Start 07/16/17 at 08:00 Dextrose (D50w Syringe) 50 ml Q15M PRN IV DECREASED GLUCOSE; Start 07/16/17 at 08:00 Glucagon (Glucagen) 1 mg Q15M PRN IM DECREASED GLUCOSE; Start 07/16/17 at 08:00 Glucose (Glutose) 15 gm Q15M PRN BUCCAL DECREASED GLUCOSE; Start 07/16/17 at 08 :00 Mometasone Furoate (Asmanex) 1 puff BID INH ; Start 07/16/17 at 09:00 Loratadine (Claritin) 10 mg DAILY PO ; Start 07/16/17 at 09:00 Enoxaparin Sodium (Lovenox) 40 mg DAILY SC Last administered on 07/17/17 09:00 ; Admin Dose 40 MG; Start 07/17/17 at 09:00 Pantoprazole (Protonix Tab) 40 mg DAILY@06 PO Last administered on 07/17/17 06 :23; Admin Dose 40 MG; Start 07/17/17 at 06:00 Ranitidine HCl (Zantac) 150 mg BID PO ; Start 07/16/17 at 21:00 Ibuprofen (Motrin) 600 mg Q8 PO Last administered on 07/17/17 06:23; Admin Dose 600 MG; Start 07/16/17 at 13:39 Atorvastatin Calcium (Lipitor) 40 mg DAILY PO ; Start 07/17/17 at 09:00 Isosorbide Dinitrate (Isordil) 10 mg BID PO Last administered on 07/17/17 09: 01; Admin Dose 10 MG; Start 07/16/17 at 21:00 Hydralazine HCl (Apresoline) 10 mg Q4H PRN IV BP > 180; Start 07/16/17 at 18:30 Carvedilol 3.125 mg 3.125 mg BID PO Last administered on 07/17/17 09:01; Admin Dose 3.125 MG; Start 07/16/17 at 19:00 Ceftriaxone Sodium (Rocephin) 50 ml @ 100 mls/hr Q24H IVPB Last administered on 07/16/17 21:04; Admin Dose 100 MLS/HR; Start 07/16/17 at 20:00 NINA HAMILTON Jul 17, 2017 11:46
[2017-07-17] MEDS: ERYTHROMYCIN 1 GM OPH OINT BOTH EYES SCH (12:16)
[2017-07-17] MEDS ORDERED: ISOSORBIDE DINITRATE 5 MG TAB PO SCH (13:00)
[2017-07-17] MEDS: ISOSORBIDE DINITRATE 10 MG TAB PO SCH ×2 (13:17→20:58)
--- NOTE | 2017-07-17 13:57 | RADRPT ---
Echocardiogram Report Patient Name: BRYCE WELLINGTON Gender: Female Date: 1955 Study Date: 17-Jul-2017 Software [employer] Manager[facility] Location[id number] Ref. Physician: NINA CHAVES Quality: Adequate Procedures: Transthoracic echocardiogram examination. Indications: Chest Pain. h/o Pericardial Effusion. Findings Left Ventricle: Normal left ventricular cavity size, wall thickness and systolic function. The left ventricular ejection fraction is visually estimated at 60 - 65 %. Right Ventricle: Normal right ventricular size. Normal right ventricular systolic function. Left Atrium: The left atrium is normal in size and appearance. Right Atrium: The right atrium is normal in size and appearance. Atrial Septum: Normal atrial septum. Mitral Valve: Normal appearance and function of the mitral valve with trace physiologic regurgitation. Aortic Valve: Normal appearance and function of the aortic valve. Tricuspid Valve: Normal appearance and function of the tricuspid valve with trace physiologic regurgitation. Normal right ventricular systolic pressure. Pulmonic Valve: Normal pulmonic valve appearance and function with trivial (physiologic) regurgitation. Pericardium: Trivial effusion. Aorta: Normal aortic root. Normal ascending aorta. Normal aortic arch. Normal descending aorta. IVC: Normal inferior vena cava appearance and respiratory collapse. Pulmonary Artery: Normal pulmonary artery size. Conclusions 1.Normal left ventricular cavity size, wall thickness and systolic function. The left ventricular ejection fraction is visually estimated at 60 - 65 %. 2.Normal appearance and function of the mitral valve with trace physiologic regurgitation. 3.Normal appearance and function of the tricuspid valve with trace physiologic regurgitation. Normal right ventricular systolic pressure. 4.Normal pulmonic valve appearance and function with trivial (physiologic) regurgitation. 5.Trivial effusion. Electronically Signed By: Nina Chaves 17-Jul-2017 13:56:34 -0700 Patient Name: BRYCE WELLINGTON Study Date: 17-Jul-[id number]
[2017-07-17] MEDS ORDERED: COLCHICINE 0.6 MG TAB PO SCH (15:00)
--- NOTE | 2017-07-17 16:27 | PN ---
Date/Time of Note Date/Time of Note DATE: 07/17/17 TIME: 16:23 Assessment/Plan VTE Prophylaxis VTE Prophylaxis Intervention: LMWH Lines/Catheters IV Catheter Type (from Nrs): Peripheral IV Urinary Cath still in place: No Assessment/Plan Chief Complaint/Hosp Course 61 yo female with h/o DMII, CKD I, CAD s/p CABG, hypertension who presented with CP, likely recurrence of pericarditis in setting of stopping NSAID Pericarditis: - Continue ibuprofen TID - Patient willing to try a dose of colchicine, has not had lipitor in over a week - TTE CAD s/p CABG: - Stress testing per Dr Chaves - Continue brillinta. Hold aspirin while on ibuprofen TID - Atorva being held given colchicine interaction DMII: - Continue basal/bolus insulin Hypertension: - Continue home meds Ppx: HSQ GI Ppx given NSAIDs, brillinta Problems: Subjective 24 Hr Interval Summary Free Text/Dictation Patient feeling better from chest symptoms today, though still somewhat present. Constant, nonexertional Recommended for stress test by Dr Chaves, but seems very reluctant to proceed with it Exam/Review of Systems Vital Signs Vitals Vital Signs Date Time Temp Pulse Resp B/P Pulse Ox O2 Delivery O2 Flow Rate FiO2 07/17/17 16:10 66 07/17/17 15:43 98.2 18 126/68 99 07/16/17 11:55 Room Air Intake and Output 07/16/17 07/16/17 07/17/17 15:00 23:00 07:00 Intake Total 700 ml 500 ml Balance 700 ml 500 ml Exam Constitutional: No alert, No distress, No frail, No non-verbal, No obese, No oriented, No other, No well developed Neck: No bruits, No jvd, No masses, No non-tender, No nuchal rigidity, No other , No supple, No thyromegaly Respiratory: No clear to auscultation, No congested cough, No crackles/rales, No diminished breath sounds, No intercostal retraction, No labored breathing, No normal air movement, No other, No respirations, No tactile fremitus, No wheezing Cardiovascular: No S3, No S4, No bruits, No diastolic murmur, No edema, No gallop, No irregular rhythm, No jugular venous distention (JVD), No murmurs/ extra sounds, No nl pulses, No other, No regular rate and rhythm, No rub, No systolic murmur Extremities: No calf tenderness, No clubbing, No cyanosis, No edema, No normal pulses, No other, No palpable cord, No pitting pedal edema, No tenderness Neurological: No UTILITY TRACTOR OPERATOR II-XII intact, No DTR's symmetric, No confused, No focal weakness, No lethargic, No nl mental status, No nl speech, No nl strength, No numbness, No other, No reflexes, No unresponsive Results Result Diagram: 07/17/1715 07/17/17614 Results 24 hrs Laboratory Tests Test 07/16/17 17:14 07/16/17 18:56 07/16/17 21:33 07/16/17 23:31 Bedside Glucose 239 H 199 185 Troponin I < 0.012 Test 07/17/17 00:36 07/17/17 06:15 07/17/17 08:26 07/17/17 11:56 Troponin I < 0.012 < 0.012 White Blood Count 10.1 Red Blood Count 4.98 Hemoglobin 14.1 Hematocrit 43.4 Mean Corpuscular Volume 87.1 Mean Corpuscular Hemoglobin 28.3 L Mean Corpuscular Hemoglobin Concent 32.5 Red Cell Distribution Width 13.3 Platelet Count 381 Mean Platelet Volume 9.7 Neutrophils % 58.4 Lymphocytes % 26.3 Monocytes % 9.1 Eosinophils % 5.1 Basophils % 0.6 Nucleated Red Blood Cells % 0.0 Neutrophils # (Manual) 6 Lymphocytes # 2.7 Monocytes # 0.9 Eosinophils # 0.5 Basophils # 0.1 Nucleated Red Blood Cells # 0.0 Sodium Level 138 Potassium Level 4.0 Chloride Level 100 Carbon Dioxide Level 29 Anion Gap 13 Blood Urea Nitrogen 17 Creatinine 0.79 Glucose Level 218 Calcium Level 9.7 Triglycerides Level 238 H Cholesterol Level 208 H LDL Cholesterol, Calculated 106 HDL Cholesterol 54 Cholesterol/HDL Ratio 3.8 Bedside Glucose 193 328 H Medications Medications Current Medications Aspirin (Halfprin) 81 mg DAILY PO Last administered on 07/16/17 08:42; Admin Dose 81 MG; Start 07/16/17 at 09:00; Status Future Hold Erythromycin (Erythromycin Oph Oint) 1 applic DAILY BOTH EYES Last administered on 07/17/17 12:16; Admin Dose 1 APPLIC; Start 07/16/17 at 09:00 Acetaminophen/ Hydrocodone Bitart ([place] (5/325)) 1 tab Q6H PO Last administered on 07/17/17 13:17; Admin Dose 1 TAB; Start 07/16/17 at 07:30 Insulin Glargine (Lantus) 25 unit QHS SC ; Start 07/16/17 at 21:00 Nitroglycerin (Nitroglycerin (Sl Tab) 0.4 Mg) 1 tab [id number] PRN SL CHEST PAIN Last administered on 07/16/17 19:04; Admin Dose 1 TAB; Start 07/16/17 at 07:30 Ticagrelor (Brilinta) 90 mg Q12 PO Last administered on 07/17/17 08:59; Admin Dose 90 MG; Start 07/16/17 at 09:00 Diagnostic Test (Pha) (Accu-Chek) 1 ea 02 XX ; Start 07/17/17 at 02:00 Miscellaneous Information 1 ea NOTE XX ; Start 07/16/17 at 08:00 Glucose (Glutose) 15 gm Q15M PRN PO DECREASED GLUCOSE; Start 07/16/17 at 08:00 Glucose (Glutose) 22.5 gm Q15M PRN PO DECREASED GLUCOSE; Start 07/16/17 at 08: 00 Dextrose (D50w Syringe) 25 ml Q15M PRN IV DECREASED GLUCOSE; Start 07/16/17 at 08:00 Dextrose (D50w Syringe) 50 ml Q15M PRN IV DECREASED GLUCOSE; Start 07/16/17 at 08:00 Glucagon (Glucagen) 1 mg Q15M PRN IM DECREASED GLUCOSE; Start 07/16/17 at 08:00 Glucose (Glutose) 15 gm Q15M PRN BUCCAL DECREASED GLUCOSE; Start 07/16/17 at 08 :00 Mometasone Furoate (Asmanex) 1 puff BID INH ; Start 07/16/17 at 09:00 Loratadine (Claritin) 10 mg DAILY PO ; Start 07/16/17 at 09:00 Enoxaparin Sodium (Lovenox) 40 mg DAILY SC Last administered on 07/17/17 09:00 ; Admin Dose 40 MG; Start 07/17/17 at 09:00 Pantoprazole (Protonix Tab) 40 mg DAILY@06 PO Last administered on 07/17/17 06 :23; Admin Dose 40 MG; Start 07/17/17 at 06:00 Ranitidine HCl (Zantac) 150 mg BID PO ; Start 07/16/17 at 21:00 Ibuprofen (Motrin) 600 mg Q8 PO Last administered on 07/17/17 13:17; Admin Dose 600 MG; Start 07/16/17 at 13:39 Atorvastatin Calcium (Lipitor) 40 mg DAILY PO ; Start 07/17/17 at 09:00 Hydralazine HCl (Apresoline) 10 mg Q4H PRN IV BP > 180; Start 07/16/17 at 18:30 Carvedilol 3.125 mg 3.125 mg BID PO Last administered on 07/17/17 09:01; Admin Dose 3.125 MG; Start 07/16/17 at 19:00 Ceftriaxone Sodium (Rocephin) 50 ml @ 100 mls/hr Q24H IVPB Last administered on 07/16/17 21:04; Admin Dose 100 MLS/HR; Start 07/16/17 at 20:00 Isosorbide Dinitrate (Isordil) 10 mg TID PO Last administered on 07/17/17 13: 17; Admin Dose 10 MG; Start 07/17/17 at 13:00 Colchicine (Colchicine) 0.3 mg DAILY PO ; Start 07/17/17 at 15:00 HEAVEN BOSWELL MD Jul 17, 2017 16:27
[2017-07-17] MEDS ORDERED: LEVOFLOXACIN 500 MG TAB PO SCH (18:00)
[2017-07-17] MEDS: INSULIN GLARGINE [LANtus] 3 ML PEN SC SCH (21:00)
[2017-07-17] MEDS: CEFTRIAXONE 1 GM/50 ML (PMX) 50 ML IVPB SCH (21:01)
[2017-07-18] VITALS (8 sets, daily range): BP systolic 114–151; BP diastolic 57–70; PULSE 62–75; RESP 16
[2017-07-18] MEDS: HYDROCODONE/APAP (5/325) TAB PO SCH ×4 (01:35→13:24)
[2017-07-18] MEDS: ACCU-CHEK XX SCH (01:36)
[2017-07-18] MEDS ORDERED: INSULIN ASPART [NOVOLOG] 3 ML PEN SC ONE (02:00)
[2017-07-18] MEDS ORDERED: ACCU-CHEK XX SCH ×2 (02:00)
[2017-07-18] MEDS: PANTOPRAZOLE (EC) 40 MG TAB PO SCH (06:00)
[2017-07-18] MEDS: IBUPROFEN 600 MG TAB PO SCH (06:08)
[2017-07-18] MEDS: MOMETASONE 0.24 GM INHALER INH SCH (08:38)
[2017-07-18] MEDS: RANITIDINE 150 MG TAB PO SCH (08:39)
[2017-07-18] MEDS: LORATADINE 10 MG TAB PO SCH (08:39)
[2017-07-18] MEDS: ENOXAPARIN 40 MG/0.4 ML SYG SC SCH (08:48)
[2017-07-18 08:49] LABS: BASOPHIL # 0.1 10^3/ul (0.0-0.1); BASOPHILS % 0.7 % (0.0-2.0); EOSINOPHILS # 0.5 10^3/ul (0.0-0.5); EOSINOPHILS % 5.6 % (0.0-7.0); HEMATOCRIT 42.2 % (37.0-47.0); HEMOGLOBIN 13.5 g/dl (12.0-16.0); LYMPHOCYTES # 2.5 10^3/ul (0.8-2.9); LYMPHOCYTES % 28.4 % (15.0-51.0); MEAN CORPUSCULAR VOLUME 87.6 fl (82.0-101.0); MEAN PLATELET VOLUME 9.8 fl (7.4-10.4); MONOCYTE # 0.7 10^3/ul (0.3-0.9); MONOCYTES % 7.7 % (0.0-11.0); NEUTROPHILS % 56.9 % (39.0-77.0); PLATELET COUNT 381 10^3/UL (140-415); RED BLOOD COUNT 4.82 10^6/ul (4.20-5.40); RED CELL DISTRIBUTION WIDTH 13.4 % (11.5-14.5); WHITE BLOOD COUNT 8.9 10^3/ul (4.8-10.8)
[2017-07-18] MEDS: INSULIN ASPART [NOVOLOG] 3 ML PEN SC SCH ×3 (08:51→11:48)
[2017-07-18] MEDS: ISOSORBIDE DINITRATE 10 MG TAB PO SCH (08:58)
[2017-07-18] MEDS: ERYTHROMYCIN 1 GM OPH OINT BOTH EYES SCH (08:58)
[2017-07-18 09:02] LABS: CALCIUM 9.3 mg/dl (8.4-10.2); CREATININE 0.77 mg/dl (0.44-1.00); POTASSIUM 4.2 mmol/L (3.5-5.1)
[2017-07-18] MEDS ORDERED: COLCHICINE 0.6 MG TAB PO SCH (09:06)
[2017-07-18] MEDS: TICAGRELOR 90 MG TABLET PO SCH (09:07)
[2017-07-18] MEDS ORDERED: COLC0.6T6 PO (10:48)
[2017-07-18] MEDS ORDERED: PANT40TA4 PO (10:48)
[2017-07-18] MEDS ORDERED: ISOS30TA5 PO (10:48)
[2017-07-18] MEDS ORDERED: IBUP-1542 PO (10:48)
[2017-07-18] MEDS ORDERED: CEFP200T2 PO (10:51)
--- NOTE | 2017-07-18 10:54 | PDOCDIS ---
Discharge Instructions CONDITION Patient Condition: Good HOME CARE INSTRUCTIONS: Diet Instructions: Reduced CalorieSpecial Diet: 1800 ADA ACTIVITY: Activity Restrictions: No Restrictions FOLLOW UP/APPOINTMENTS Follow-up Plan Take Ibuprofen as you need for the next 1-2 weeks. You can stop this as your symptoms resolve Continue colchicine for at least 1-[address] discussion with Dr Chaves. It is ok to hold your statin medication while you are taking colchicine Stop taking aspirin while you are taking Ibuprofen. Continue brillinta Make a follow up appointment with Dr Chaves in the following weeks Return to medical care if you feel any concerning symptoms HEAVEN BOSWELL MD Jul 18, 2017 10:54
--- NOTE | 2017-07-18 11:52 | CONS ---
Date/Time of Note Date/Time of Note DATE: 07/18/17 TIME: 11:48 Assessment/Plan Assessment/Plan Chief Complaint/Hosp Course IMPRESSION: 1. Chest pain. -negative trop x 3/now improved s/p colchicine challenge. Refused stress test. Echo NL EF/trivial effusion 2. History of percutaneous transluminal coronary angioplasty and stent placement 2 years prior. 3. EKG with nonspecific ST-T abnormalities and low voltage. 4. History of small pericardial effusion approximately 10 days prior. 5. History of recent diagnosis of pericarditis.-improved sx on ibuprofen/ colchicine 6. Hypertension, labile. 7. Dyslipidemia. 8. History of lupus. REcc: -tele -serial ecg's -unable to have stress test today due to no nuclear tech available -Continue coreg/isordil -Continue colchicine now that patient has tolerated well -Holding statin -Continue brilinta/ok to hold asa and continue NSAIDS at this time -D/C planning with outpatient f/u 2 weeks Problems: Consultation Date/Type/Reason Admit Date/Time Jul 16, 2017 at 05:24 Initial Consult Date 07/16/2017 Type of Consultation: cardiology Reason for Consultation chest pain Referring Provider: KALPESH BROWN Exam/Review of Systems Vital Signs Vitals Vital Signs Date Time Temp Pulse Resp B/P Pulse Ox O2 Delivery O2 Flow Rate FiO2 07/18/17 11:03 97.8 68 16 124/61 97 07/16/17 11:55 Room Air Intake and Output 07/17/17 07/17/17 07/18/17 15:00 23:00 07:00 Intake Total 600 ml Balance 600 ml Exam Review of Systems: CONSTITUTIONAL: No fevers, chills. PULMONARY: No sob CARDIOVASCULAR: improved chest pain GASTROINTESTINAL: No nausea/vomiting. GENITOURINARY: No hematuria/dysuria. MUSCULOSKELETAL: No myagias/arthalgias. PSYCHIATRIC: The patient denies depression. NEUROLOGIC: No weakness Constitutional: alert, oriented Psych: no complaints Head: normocephalic ENMT: mucosa pink and moist Neck: jvd (9 cm water), supple Respiratory: diminished breath sounds (at bases/B) Cardiovascular: regular rate and rhythm Gastrointestinal: non-tender, soft Musculoskeletal: muscle tone (normal) Extremities: edema (none) Neurological: other (No focal deficits) Results Result Diagram: 07/18/17 0743 07/18/17 0743 Results 24 hrs Laboratory Tests Test 07/17/17 11:56 07/17/17 16:49 07/17/17 21:10 07/18/17 01:23 Bedside Glucose 328 H 323 H 189 299 H Test 07/18/17 07:43 07/18/17 08:43 White Blood Count 8.9 Red Blood Count 4.82 Hemoglobin 13.5 Hematocrit 42.2 Mean Corpuscular Volume 87.6 Mean Corpuscular Hemoglobin 28.0 L Mean Corpuscular Hemoglobin Concent 32.0 Red Cell Distribution Width 13.4 Platelet Count 381 Mean Platelet Volume 9.8 Neutrophils % 56.9 Lymphocytes % 28.4 Monocytes % 7.7 Eosinophils % 5.6 Basophils % 0.7 Nucleated Red Blood Cells % 0.0 Neutrophils # (Manual) 5.1 Lymphocytes # 2.5 Monocytes # 0.7 Eosinophils # 0.5 Basophils # 0.1 Nucleated Red Blood Cells # 0.0 Sodium Level 139 Potassium Level 4.2 Chloride Level 97 Carbon Dioxide Level 30 Anion Gap 16 Blood Urea Nitrogen 19 Creatinine 0.77 Glucose Level 213 Calcium Level 9.3 Bedside Glucose 230 H Medications Medications Current Medications Aspirin (Halfprin) 81 mg DAILY PO Last administered on 07/16/17 08:42; Admin Dose 81 MG; Start 07/16/17 at 09:00; Status Future Hold Erythromycin (Erythromycin Oph Oint) 1 applic DAILY BOTH EYES Last administered on 07/18/17 08:58; Admin Dose 1 APPLIC; Start 07/16/17 at 09:00 Acetaminophen/ Hydrocodone Bitart (Plessis (5/325)) 1 tab Q6H PO Last administered on 07/18/17 06:44; Admin Dose 1 TAB; Start 07/16/17 at 07:30 Insulin Glargine (Lantus) 25 unit QHS SC ; Start 07/16/17 at 21:00 Nitroglycerin (Nitroglycerin (Sl Tab) 0.4 Mg) 1 tab [id number] PRN SL CHEST PAIN Last administered on 07/16/17 19:04; Admin Dose 1 TAB; Start 07/16/17 at 07:30 Ticagrelor (Brilinta) 90 mg Q12 PO Last administered on 07/18/17 09:07; Admin Dose 90 MG; Start 07/16/17 at 09:00 Diagnostic Test (Pha) (Accu-Chek) 1 ea 02 XX Last administered on 07/18/17 01: 36; Admin Dose 1 EA; Start 07/17/17 at 02:00 Miscellaneous Information 1 ea NOTE XX ; Start 07/16/17 at 08:00 Glucose (Glutose) 15 gm Q15M PRN PO DECREASED GLUCOSE; Start 07/16/17 at 08:00 Glucose (Glutose) 22.5 gm Q15M PRN PO DECREASED GLUCOSE; Start 07/16/17 at 08: 00 Dextrose (D50w Syringe) 25 ml Q15M PRN IV DECREASED GLUCOSE; Start 07/16/17 at 08:00 Dextrose (D50w Syringe) 50 ml Q15M PRN IV DECREASED GLUCOSE; Start 07/16/17 at 08:00 Glucagon (Glucagen) 1 mg Q15M PRN IM DECREASED GLUCOSE; Start 07/16/17 at 08:00 Glucose (Glutose) 15 gm Q15M PRN BUCCAL DECREASED GLUCOSE; Start 07/16/17 at 08 :00 Mometasone Furoate (Asmanex) 1 puff BID INH ; Start 07/16/17 at 09:00 Loratadine (Claritin) 10 mg DAILY PO ; Start 07/16/17 at 09:00 Enoxaparin Sodium (Lovenox) 40 mg DAILY SC Last administered on 07/18/17 08:48 ; Admin Dose 40 MG; Start 07/17/17 at 09:00 Pantoprazole (Protonix Tab) 40 mg DAILY@06 PO Last administered on 07/17/17 06 :23; Admin Dose 40 MG; Start 07/17/17 at 06:00 Ranitidine HCl (Zantac) 150 mg BID PO Last administered on 07/17/17 20:59; Admin Dose 150 MG; Start 07/16/17 at 21:00 Ibuprofen (Motrin) 600 mg Q8 PO Last administered on 07/18/17 06:08; Admin Dose 600 MG; Start 07/16/17 at 13:39 Hydralazine HCl (Apresoline) 10 mg Q4H PRN IV BP > 180; Start 07/16/17 at 18:30 Carvedilol 3.125 mg 3.125 mg BID PO Last administered on 07/18/17 08:56; Admin Dose 3.125 MG; Start 07/16/17 at 19:00 Ceftriaxone Sodium (Rocephin) 50 ml @ 100 mls/hr Q24H IVPB Last administered on 07/17/17 21:01; Admin Dose 100 MLS/HR; Start 07/16/17 at 20:00 Isosorbide Dinitrate (Isordil) 10 mg TID PO Last administered on 07/18/17 08: 58; Admin Dose 10 MG; Start 07/17/17 at 13:00 Diagnostic Test (Pha) (Accu-Chek) 1 ea 02 XX Last administered on 07/18/17 01: 37; Admin Dose 1 EA; Start 07/18/17 at 02:00 Diagnostic Test (Pha) (Accu-Chek) 1 ea 02 XX Last administered on 07/18/17 01: 37; Admin Dose 1 EA; Start 07/18/17 at 02:00 Colchicine (Colchicine) 0.3 mg BID PO Last administered on 07/18/17 09:13; Admin Dose 0.3 MG; Start 07/18/17 at 09:06 NINA HAMILTON Jul 18, 2017 11:52
--- NOTE | 2017-07-18 16:25 | DS ---
Date/Time of Note Date/Time of Note DATE: 07/18/17 TIME: 16:14 Discharge Summary Admission/Discharge Info Admit Date/Time Jul 16, 2017 at 05:24 Discharge Date/Time Jul 18, 2017 at 15:15 Patient Condition: Good Hospital Course Patient was ruled out for ACS with negative biomarkers/EKG. Her clinical history was very suggestive that this was pericarditis that recurred as soon as she stopped taking Toradol as an outpatient. She was started on ibuprofen with good clinical response. She also received a dose of colchicine which she tolerated without adverse effect, so this medication was continued. TTE showed trace pericardial effusion. She was considered for a stress test but was very apprehensive to do so. She will follow up with Dr Chaves as an outpatient. Home Meds Active Scripts Cefpodoxime Proxetil* (Cefpodoxime Proxetil*) 200 Mg Tablet, 200 MG PO Q12 for 5 Days, #10 TAB Prov:HEAVEN BOSWELL MD 07/18/17 Isosorbide Mononitrate* (Isosorbide Mononitrate*) 30 Mg Tab.er.24h, 30 MG PO DAILY for 30 Days, #30 TAB 1 Refill Prov:HEAVEN BOSWELL MD 07/18/17 Colchicine* (Colcrys*) 0.6 Mg Tablet, 0.6 MG PO BID for 60 Days, #120 TAB Prov:HEAVEN BOSWELL MD 07/18/17 Pantoprazole* (Pantoprazole*) 40 Mg Tablet.dr, 40 MG PO DAILY@06 for 30 Days, # 30 Prov:HEAVEN BOSWELL MD 07/18/17 Ibuprofen* (Ibuprofen*) 600 Mg Tablet, 600 MG PO Q8 for 10 Days, #30 TAB Prov:HEAVEN BOSWELL MD 07/18/17 Carvedilol* (Carvedilol*) 3.125 Mg Tablet, 3.125 MG PO BID, #60 TAB Prov:SAMMY HU 05/20/17 Ticagrelor* (Brilinta*) 90 Mg Tablet, 90 MG PO Q12 for 30 Days, TAB Prov:AR HUANG 06/18/15 Reported Medications Cetirizine Hcl* (Cetirizine Hcl*) 10 Mg Tablet, 10 MG PO DAILY, #30 TAB 07/04/17 Insulin Glargine* (Lantus*) 100 Unit/Ml Soln, 25 UNIT SC QHS, #1 VIAL BASAGLAR 100UNIT/ML KWIKPEN 07/04/17 Insulin Lispro (Humalog) 100 Unit/1 Ml Cartridge, 6 UNIT SQ BID WITH MEALS 07/04/17 Hydrocodone/Acetaminophen ([place] 5-325 Tablet) 1 Each Tablet, 1 EACH PO NEEDED, TAB 07/04/17 Albuterol Sulfate* (Ventolin HFA*) 18 Gm Hfa.aer.ad, 1 PUFF INHALATION Q6H, #1 INHALER 07/04/17 Fluticasone Propionate* (Flovent* HFA 220) 12 Gm Inha, 1 PUFF INHALATION BID, # 1 INHALER 07/04/17 Hydrochlorothiazide* (Hydrochlorothiazide*) 25 Mg Tab, 25 MG PO NEEDED, #30 TAB 07/04/17 Nitroglycerin* (Nitrostat*) 0.4 Mg Tab.subl, 0.4 MG SL Q5MIN Y for CHEST PAIN, BOTTLE 08/10/14 Discontinued Reported Medications Erythromycin (Erythromycin Opth) 3.5 Gm Oint..gm., 1 APPLIC BOTH EYES DAILY, #1 TUB 07/04/17 Isosorbide Dinitrate* (Isordil*) 5 Mg Tab, 5 MG PO BID, TAB 07/04/17 Ondansetron Hcl* (Zofran* ODT) 4 mg -ODT Tab.disper, 4 MG PO Q6H Y for NAUSEA, TAB 08/10/14 Atorvastatin* (Atorvastatin*) 80 Mg Tablet, 80 MG PO DAILY, TAB 08/10/14 Aspirin Ec (Aspir 81) 81 Mg Tablet.dr, 81 MG PO DAILY 06/06/14 Discontinued Scripts Ketorolac Tromethamine* (Ketorolac Tromethamine*) 10 Mg Tablet, 30 MG PO TID, # 10 TAB Prov:TIMOTHY NEW 07/08/17 Meloxicam* (Mobic*) 15 Mg Tablet, 15 MG PO DAILY, #30 TAB Prov:SAMMY HU 05/20/17 Primary Care Provider Bakari Sullivan MD Pending Labs Laboratory Tests Test 07/17/17 16:49 07/17/17 21:10 07/18/17 01:23 07/18/17 07:43 Bedside Glucose 323mg/dL (70-220) 189mg/dL (70-220) 299mg/dL (70-220) White Blood Count 8.910^3/ul (4.8-10.8) Red Blood Count 4.8210^6/ul (4.20-5.40) Hemoglobin 13.5g/dl (12.0-16.0) Hematocrit 42.2% (37.0-47.0) Mean Corpuscular Volume 87.6fl (82.0-101.0) Mean Corpuscular Hemoglobin 28.0pg (29.0-33.0) Mean Corpuscular Hemoglobin Concent 32.0g/dl (32.0-37.0) Red Cell Distribution Width 13.4% (11.5-14.5) Platelet Count 46644^3/UL (140-415) Mean Platelet Volume 9.8fl (7.4-10.4) Neutrophils % 56.9% (39.0-77.0) Lymphocytes % 28.4% (15.0-51.0) Monocytes % 7.7% (0.0-11.0) Eosinophils % 5.6% (0.0-7.0) Basophils % 0.7% (0.0-2.0) Nucleated Red Blood Cells % 0.0/100WBC (0.0-0.0) Neutrophils # (Manual) 5.110^3/ul (1.7-7.5) Lymphocytes # 2.510^3/ul (0.8-2.9) Monocytes # 0.710^3/ul (0.3-0.9) Eosinophils # 0.510^3/ul (0.0-0.5) Basophils # 0.110^3/ul (0.0-0.1) Nucleated Red Blood Cells # 0.010^3/ul (0.0-0.0) Sodium Level 139mmol/L (135-144) Potassium Level 4.2mmol/L (3.5-5.1) Chloride Level 97mmol/L (97-110) Carbon Dioxide Level 30mmol/L (21-31) Anion Gap 16 (8-16) Blood Urea Nitrogen 19mg/dl (7-20) Creatinine 0.77mg/dl (0.44-1.00) Glucose Level 213mg/dl (70-220) Calcium Level 9.3mg/dl (8.4-10.2) Test 07/18/17 08:43 07/18/17 11:46 Bedside Glucose 230mg/dL (70-220) 118mg/dL (70-220) HEAVEN BOSWELL MD Jul 18, 2017 16:25
--- NOTE | 2017-07-18 17:10 | RADRPT ---
Vent Rate: 76 bpm RR Interval: 0 msec [place] Interval: 164 msec QRS Duration: 92 msec QT Interval: 390 msec QTC Interval: 438 msec P-R-T [place]: 46 - 40 - 60 degrees Normal sinus rhythm Normal ECG Electronically Signed By: Sánchez Segura [id number]
== END 2017-07-18 15:15 | disposition home or self-care (01) | DRG 316 ==
LOC: E/R 02:03 → TEL 05:24
PROVIDERS: ADMIT Family Medicine; ATTEND Family Medicine
DX: I30.9 Acute pericarditis, unspecified (principal); E11.22 Type 2 diabetes mellitus with diabetic chronic kidney disease; M32.9 Systemic lupus erythematosus, unspecified; I25.10 Atherosclerotic heart disease of native coronary artery without angina pectoris; E78.5 Hyperlipidemia, unspecified; I12.9 Hypertensive chronic kidney disease with stage 1 through stage 4 chronic kidney disease, or unspecified chronic kidney disease; N18.1 Chronic kidney disease, stage 1; M19.90 Unspecified osteoarthritis, unspecified site; R07.9 Chest pain, unspecified; Z79.4 Long term (current) use of insulin; Z79.84 Long term (current) use of oral hypoglycemic drugs; Z79.02 Long term (current) use of antithrombotics/antiplatelets; I25.2 Old myocardial infarction; Z95.1 Presence of aortocoronary bypass graft; Z95.5 Presence of coronary angioplasty implant and graft
CPT/HCPCS: 71010; 80048; 80053; 80061; 81003; 82962; 83735; 83880; 84484; 85025; 86140; 87081; 93005; 93308; 96374; 96375; J0360; J0696; J1650; J1815; J1885; J2270; J2405